=== PATIENT | female | born 1955 | race African-American/Black ===

== ENCOUNTER 2016-07-17 16:04 | Inpatient (IN) | payer OTHER ==
[~2016-07-17] VITALS: Ht 160 cm; Wt 91.1 kg
[~2016-07-17 16:04] MED LIST: ALPR0.254 PO; AMLO5TAB4 PO; ATOR80TA75 PO; CALC-143 PO; COMP1EAC MC; FENO67CA PO; FURO20TA3 PO; GABA-526 PO; HAL2 PO; HYDR-906 PO; INSU100C SQ; IPRA3AMP HHN; LANT3I SC; LOSA100T7 PO; METF-388 PO; METO-448 PO; NAPR-685 PO; Nicotine (14 Mg/24 Hr) TRANSDERM; PANT40TA3 PO; POTA8CAP PO; SERT100T PO; TRAZ300T15 PO; [UNRECOGNIZED DRUG - CODE] PO; [UNRECOGNIZED DRUG - CODE] PO
[2016-07-17] MEDS ORDERED: IPRATROPIUM (NEB) 0.5 MG/2.5 ML AMP NEB STA (16:06)
[2016-07-17] MEDS ORDERED: ALBUTEROL 0.5% (NEB) 2.5 MG/0.5 ML AMP NEB STA (16:06)
[2016-07-17] MEDS ORDERED: METHYLPREDNISOLONE 125 MG INJ IV STA (16:06)
--- NOTE | 2016-07-17 16:31 | RADRPT ---
PROCEDURE: XR Chest. CLINICAL INDICATION: Chest pain. TECHNIQUE: Single frontal view. COMPARISON: 03/03/2016. FINDINGS: There is bilateral interstitial disease predominately in the mid and lower lung zones consistent wit h pulmonary edema, worse than seen previously. The lungs are otherwise clear. The heart is enlarged. There is a dual lead left-sided permanent pacemaker. There is a transcathet er aortic valve replacement. There is no pleural effusion. There is no pneumothorax. IMPRESSION: 1. Pulmonary edema, worse than seen previously. 2. Cardiomegaly. 3. Left-sided dual lead permanent pacemaker. 4. Transcatheter aortic valve replacement (TAVR). RPTAT: QQ .Tao Mcmahon MD, MD Date Time Electronically viewed and signed by .Tao Mcmahon MD, MD on 07/17/2016 16:31 .R/
[2016-07-17] MEDS ORDERED: TRAZ100T15 PO (16:38)
[2016-07-17] MEDS ORDERED: WARF5TAB72 PO (16:42)
[2016-07-17] MEDS ORDERED: WARF7.5T PO (16:42)
[2016-07-17 16:59] LABS: EOSINOPHILS # 0.1 10^3/ul (0.0-0.5); EOSINOPHILS % 1.2 % (0.0-7.0); HEMATOCRIT 35.3 % (37.0-47.0); HEMOGLOBIN 11.3 g/dl (12.0-16.0); LYMPHOCYTES # 1.2 10^3/ul (0.8-2.9); LYMPHOCYTES % 17.4 % (15.0-51.0); MEAN CORPUSCULAR HEMOGLOBIN 28.3 pg (29.0-33.0); MEAN CORPUSCULAR HGB CONC 32.1 g/dl (32.0-37.0); MEAN PLATELET VOLUME 9.7 fl (7.4-10.4); MONOCYTE # 0.3 10^3/ul (0.3-0.9); MONOCYTES % 4.4 % (0.0-11.0); NEUTROPHIL # 5.4 10^3/ul (1.6-7.5); PLATELET COUNT 158 10^3/UL (140-440); RED BLOOD COUNT 4.01 10^6/ul (4.20-5.40); RED CELL DISTRIBUTION WIDTH 26.5 % (11.5-14.5)
[2016-07-17 17:03] LABS: CONDITION 1; LH ANALYZER COMMENTS 1; SUSPECT 1
[2016-07-17 17:08] LABS: INR 2.74; PROTIME 29.4 Sec (12.2-14.2); PT RATIO 2.3
[2016-07-17 17:09] LABS: PARTIAL THROMBOPLASTIN TIME 42.8 Sec (25.0-35.0); POTASSIUM 3.3 mmol/L (3.5-5.1)
[2016-07-17 17:12] LABS: CREATININE 0.86 mg/dl (0.44-1.00)
[2016-07-17 17:13] LABS: CALCIUM 8.6 mg/dl (8.4-10.2)
[2016-07-17 17:25] LABS: TROPONIN-I 0.016 ng/ml (0.00-0.12)
[2016-07-17] MEDS ORDERED: FUROSEMIDE 40 MG INJ IV ONE (17:30)
[2016-07-17] MEDS ORDERED: POTASSIUM CHLORIDE (SR) 20 MEQ TAB PO STA (17:38)
--- NOTE | 2016-07-17 17:38 | ERA ---
ER Documentation Chief Complaint Date/Time DATE: 07/17/16 TIME: 17:33 Chief Complaint SOB X3 DAYS, SENT BY PCP FOR LOW O2 SAT HPI This is a 61-year-old female who presents to the emergency room after being brought in by ambulance from a urgent care for evaluation of shortness of breath for the past 3 days. At the urgent care the patient did have a pulse oxygen level of 74% on room air. She was placed on a nonrebreather and transported to the emergency room for further evaluation. She does state that she is short of breath and is worse when she lays flat, and does state that she does have a history of "water on the lungs". This patient is a smoker and does state that she continues to smoke cigarettes. She is denying any nausea, vomiting, or active chest pain at this time. ROS All systems reviewed and are negative except as per history of present illness. Medications Home Meds Active Scripts Potassium Chloride* (Potassium Chloride*) 8 Meq Capsule.er, 8 MEQ PO DAILY, #30 CAP Prov:SABRINA COOK MD 03/03/16 Furosemide* (Furosemide*) 20 Mg Tablet, 20 MG PO DAILY, #30 TAB Prov:SABRINA COOK MD 03/03/16 Reported Medications Warfarin Sodium* (Coumadin*) 7.5 Mg Tablet, 7.5 MG PO SUNDAY, TAB 07/17/16 Warfarin Sodium* (Coumadin*) 5 Mg Tablet, 5 MG PO S,M,T,NARINDER,F,SAT,, TAB 07/17/16 Trazodone Hcl* (Trazodone Hcl*) 100 Mg Tablet, 200 MG PO QHS, #30 TAB 07/17/16 Haloperidol* (Haldol*) 2 Mg Tab, 4 MG PO QHS, TAB 02/29/16 Amlodipine Besylate* (Norvasc*) 5 Mg Tablet, 5 MG PO DAILY, TAB 02/29/16 Insulin Lispro (Humalog) 100 Unit/1 Ml Cartridge, 48 UNIT SQ WITH MEALS 02/29/16 Atorvastatin* (Atorvastatin*) 80 Mg Tablet, 80 MG PO QHS, #30 TAB 02/29/16 Pantoprazole* (Protonix*) 40 Mg Tablet.dr, 40 MG PO DAILY, TAB 02/29/16 Sertraline Hcl* (Zoloft*) 100 Mg Tablet, 200 MG PO QAM, #60 TAB 8/23/16 Fenofibrate, Micronized (Lofibra) 67 Mg Capsule, 67 MG PO DAILY, CAP 02/29/16 Losartan Potassium* (Losartan Potassium*) 100 Mg Tablet, 100 MG PO DAILY, TAB 02/29/16 Insulin Glargine* (Lantus*) 100 Unit/Ml Soln, 78 UNIT SC BID, #1 VIAL 02/29/16 Gabapentin* (Gabapentin*) 600 Mg Tablet, 600 MG PO BID, #60 TAB 02/29/16 [place]-3 Fatty Acids (Fish Oil Concentrate) 1 Cap Capsule, 1 CAP PO BID 02/25/12 Metoprolol Tartrate* (Lopressor*) 25 Mg Tab, 25 MG PO BID 02/25/12 Aspirin (Child Aspirin) 81 Mg Tab.chew, 81 MG PO DAILY 02/25/12 Discontinued Reported Medications Calcium Citrate/Vitamin D (Citracal-Vitamin D 200 MG-250) 1 Each Tablet, 1 EACH PO BID, TAB 02/29/16 Trazodone Hcl* (Trazodone Hcl*) 300 Mg Tablet, 300 MG PO QHS, #30 TAB 02/29/16 Naproxen* (Naproxen*) 375 Mg Tablet, 375 MG PO BID Y for PAIN AND/OR INFLAMMATION, TAB 02/29/16 Metformin Hcl* (Metformin Hcl*) 1,000 Mg Tablet, 1000 MG PO WITH BREAKFAST DINNE , #30 TAB 02/29/16 Discontinued Scripts Hydrocodone/Acetaminophen ([place] 5-325 Tablet) 1 Each Tablet, 1 TAB PO Q6H Y for PAIN, #15 TAB Prov:ZAHEER COOK 03/10/16 Compressor, For Nebulizer ([place] Compressor-Nebulizer) 1 Each Each, 1 EACH MC , #1 Prov:SABRINA COOK MD 03/03/16 Ipratropium-Albuterol (Ipratropium-Albuterol) 0.5-3 Mg/3 Ml Ampul.neb, 3 ML HHN Q2H RESP THERAPY Y for SHORTNESS OF BREATH, #1 BOX Prov:SABRINA COOK MD 03/03/16 [Nicotine (14 Mg/24 Hr)] 1 PATCH PATCH No Conflict Check, 1 PATCH TRANSDERM DAILY, #30 ADH.PATCH Prov:SABRINA COOK MD 8/26/16 Alprazolam* (Alprazolam*) 0.25 Mg Tablet, 0.5 MG PO Q8H Y for anxiety, #40 TAB Prov:SABRINA COOK MD 03/03/16 Allergies Allergies: Coded Allergies: No Known Allergy (Unverified , 07/17/16) PMhx/Soc History of Surgery: Yes (appendectomy, toncillectomy,pacemaker/defibrillator ( 09/2015)) Anesthesia Reaction: No Hx Neurological Disorder: Yes (neuropathy) Hx Respiratory Disorders: Yes (asthma, copd) Hx Cardiac Disorders: Yes (HTN) Hx Psychiatric Problems: Yes (depression) Hx Miscellaneous Medical Probl: Yes (DM, high cholesterol) Hx Alcohol Use: Yes (1 shot of vodka/ night) Hx Substance Use: No Hx Tobacco Use: Yes (1 pack/ day) Smoking Status: Current every day smoker Physical Exam Vitals Vital Signs Date Time Temp Pulse Resp B/P Pulse Ox O2 Delivery O2 Flow Rate FiO2 07/17/16 16:32 68 28 95 Nasal Cannula 4.0 07/17/16 16:30 72 23 146/71 74 07/17/16 16:30 Nasal Cannula 4.0 07/17/16 16:30 Nasal Cannula 4 07/17/16 16:11 74 4.0 Physical Exam INITIAL VITAL SIGNS: Reviewed by me GENERAL: The patient is well developed and appropriate for usual state of health in no apparent distress HEENT: Pupils equal, round, and reactive to light. EOMI. There is no scleral icterus. NECK: C-spine is soft and supple, there is no meningismus. There is no cervical lymphadenopathy. LUNGS: Diffuse rales auscultated throughout all lung linares worse in the lower lobes HEART: Regular rate and rhythm, no murmurs, clicks, rubs or gallops. ABDOMEN: Soft, non-tender, non-distended. There are bowel sounds in all four quadrants. No rebound or guarding. EXTREMITIES: There is no peripheral cyanosis or edema. No focal swelling or erythema. NEUROLOGICAL: The patient moves all four extremities with 5/5 strength. Cranial nerves II - XII are intact. Normal gait. Alert and oriented SKIN: There is no apparent rash or petechiae. HEME/LYMPHATIC: There is no evidence of excessive bruising or lymphedema. PSYCHIATRIC: The patient does not appear anxious or depressed. Result Diagram: 07/17/16 1630 07/17/16 1630 Results 24 hrs Laboratory Tests Test 07/17/16 16:30 Activated Partial Thromboplast Time 42.8Sec Anion Gap 15 B-Type Natriuretic Peptide 2590PG/ML Basophils # 0.010^3/ul Basophils % 0.0% Bedside Glucose 89mg/dL Blood Morphology Comment Blood Urea Nitrogen 12mg/dl Calcium Level 8.6mg/dl Carbon Dioxide Level 30mmol/L Chloride Level 104mmol/L Creatinine 0.86mg/dl Eosinophils # 0.110^3/ul Eosinophils % 1.2% Glucose Level 82mg/dl Hematocrit 35.3% Hemoglobin 11.3g/dl INR International Normalized Ratio 2.74 Lymphocytes # 1.210^3/ul Lymphocytes % 17.4% Mean Corpuscular Hemoglobin 28.3pg Mean Corpuscular Hemoglobin Concent 32.1g/dl Mean Corpuscular Volume 88.0fl Mean Platelet Volume 9.7fl Monocytes # 0.310^3/ul Monocytes % 4.4% Neutrophils # 5.410^3/ul Neutrophils % 77.0% Nucleated Red Blood Cells # 0.010^3/ul Nucleated Red Blood Cells % 0.0/100WBC Platelet Count 71173^3/UL Potassium Level 3.3mmol/L Prothrombin Time 29.4Sec Prothrombin Time Ratio 2.3 Red Blood Count 4.0110^6/ul Red Cell Distribution Width 26.5% Sodium Level 146mmol/L Troponin I 0.016ng/ml White Blood Count 7.010^3/ul Current Medications Medications (Trade) Dose Ordered Sig/River Route PRN Reason Start Time Stop Time Status Last Admin Dose Admin Albuterol (Proventil 0.5% (Neb)) 5 mg ONCE STAT NEB 07/17/16 16:06 07/17/16 16:07 DC 07/17/16 16:31 Ipratropium [place] (Atrovent 0.02% (Neb)) 0.5 mg ONCE STAT NEB 07/17/16 16:06 07/17/16 16:07 DC 07/17/16 16:31 Methylprednisolone Sodium Succinate (Solu-Medrol) 125 mg ONCE STAT IV 07/17/16 16:06 07/17/16 16:07 DC 07/17/16 16:42 Furosemide (Lasix) 40 mg ONCE ONCE IV 07/17/16 17:30 07/17/16 17:31 DC Procedures/MDM EKG: Rate/Rhythm: [Normal Sinus Rhythm with left axis deviation] QRS, ST, T-waves: [No changes consistent w/ acute ischemia] Impression: [No evidence of ischemia or arrhythmia] Chest X-ray 1V Interpreted by me: Soft Tissue: No acute abnormalities Bones: No acute abnormalities Mediastinum/Cardiac Silhouette/Lungs: Pulmonary edema This 61-year-old female presents to the emergency room for evaluation of shortness of breath. She was satting 74% on room air and we did confirm that here in the emergency room. This patient was put on a nonrebreather, she was given an in-line breathing treatment and her pulse ox was 100%. She did have coarse rales throughout her lung linares and x-ray did confirm my suspicion of pulmonary edema. This patient is hemodynamically stable at this time, her troponin is normal and she was given Lasix for diuresis. Given this patient's pulse ox, and x-ray consistent with pulmonary edema she will be placed in for admission at this time on to a telemetry floor for continued diuresis and further evaluation. She will be admitted to her panel physician, Dr. Capellan. Critical Care: Excluding all billable procedures Time: 41minutes Treatments/Evaluations: Emergent and rapid respiratory assessment and management with continuous monitoring. Advanced airway equipment at the ready, while the patient's respiratory symptoms were stabilized. Smoking Cessation Therapy: Pt. was lectured for greater than 3 minutes on the health risks of continued smoking and the benefits of cessation. Departure Diagnosis: Primary Impression: Acute decompensated heart failure Additional Impressions: Pulmonary edema Respiratory failure Hypokalemia Tobacco abuse counseling Tobacco abuse Condition: Serious EMERYDANIEL CRUZ Jul 17, 2016 17:37
[2016-07-17] MEDS ORDERED: ACETAMINOPHEN 325 MG TAB PO PRN ×2 (18:00→18:30)
[2016-07-17] MEDS ORDERED: ONDANSETRON 4 MG INJ IV PRN ×2 (18:00→18:30)
[2016-07-17] MEDS ORDERED: NACL 0.9% 3 ML SYG IV SCH (18:30)
[2016-07-17] MEDS ORDERED: BISACODYL (EC) 5 MG TAB PO PRN (18:30)
[2016-07-17] MEDS ORDERED: MAGNESIUM HYDROXIDE 30ML CUP PO PRN (18:30)
[2016-07-17] MEDS ORDERED: LORAZEPAM 2 MG INJ IV PRN (18:30)
[2016-07-17] MEDS ORDERED: NITROGLYCERIN (SL) 0.4 MG TAB SL PRN (18:30)
[2016-07-17] MEDS ORDERED: DEXTROSE 50% 50 ML SYRINGE IV PRN ×2 (19:00)
[2016-07-17] MEDS ORDERED: GLUCOSE GEL 15 GRAM TUBE PO PRN ×2 (19:00)
[2016-07-17] MEDS ORDERED: hydrALAzine 20 MG INJ IV PRN (19:00)
[2016-07-17] MEDS ORDERED: GLUCOSE GEL 15 GRAM TUBE BUCCAL PRN (19:00)
[2016-07-17] MEDS ORDERED: GLUCAGON 1 MG INJ IM PRN (19:00)
[2016-07-17] MEDS ORDERED: ALBUTEROL/IPRATROPIUM (NEB) 3 ML AMP HHN PRN (19:00)
[2016-07-17 19:34] LABS: ADD UMIC NO; URINE BILIRUBIN (Dip) NEGATIVE (NEGATIVE); URINE BLOOD (Dip) NEGATIVE (NEGATIVE); URINE COLOR LT. YELLOW (YELLOW); URINE GLUCOSE (Dip) NEGATIVE (NEGATIVE); URINE KETONES (Dip) NEGATIVE (NEGATIVE); URINE LEUKOCYTE ESTERASE (Dip) NEGATIVE (NEGATIVE); URINE NITRITE (Dip) NEGATIVE (NEGATIVE); URINE TOTAL PROTEIN (Dip) NEGATIVE (NEGATIVE); URINE UROBILINOGEN (Dip) 0.2 E.U./dL (0.1-1.0)
[2016-07-17 20:00] LABS: BARBITURATES Negative (NEGATIVE); BENZODIAZEPINES Negative (NEGATIVE); CANNABINOIDS Positive (NEGATIVE); COCAINE Negative (NEGATIVE); OPIATES Negative (NEGATIVE)
[2016-07-17] MEDS: WARFARIN 5 MG TAB PO SCH (20:15)
[2016-07-17] MEDS: morphine 2 MG INJ IV PRN (20:24)
[2016-07-17] MEDS: ALBUTEROL/IPRATROPIUM (NEB) 3 ML AMP HHN SCH (20:32)
--- NOTE | 2016-07-17 20:58 | HP ---
DATE OF ADMISSION: 07/17/2016 REASON FOR ADMISSION: Dyspnea. Sent in by urgent care for low oxygen saturation. CONSULTATIONS: Dr. Naun Bernard, Cardiology HISTORY OF PRESENT ILLNESS: This is a 61-year-old female with chronic hypoxia secondary to COPD who uses home oxygen, essential hypertension, diastolic heart failure, type 2 diabetes mellitus, anemia, mitral stenosis, status post aortic valve replacement, and nicotine use who was brought to the emergency room by ambulance from an urgent care for evaluation of shortness of breath that has been going on for the past 3 days. The patient verbalized that she has been using her inhaled bronchodilators more frequently with no improvement in the shortness of breath. She has been using 4 L of oxygen at home with no improvement in the shortness of breath. She denied any cough. She was complaining of subjective fevers and chills. She was complaining of nonspecific chest pain. The patient continues to smoke despite her clinical condition. The patient verbalized that the dyspnea was worse while she was lying flat. The patient denied any nausea, vomiting, diarrhea, dysuria or urinary frequency. The patient verbalized that she has been compliant with her medications. In the emergency room, the patient was noticed to have an oxygen saturation of 74%. The patient was subsequently put on 100% nonrebreather mask with improvement in the patient's oxygen saturation. The patient underwent a chest x -ray that showed pulmonary edema and cardiomegaly. The patient was treated with IV Solu-Medrol and IV Lasix along with inhaled bronchodilators in the emergency room. PAST MEDICAL HISTORY: Essential hypertension, COPD, diastolic heart failure, type 2 diabetes mellitus, iron deficiency anemia, mitral stenosis. PAST SURGICAL HISTORY: Appendectomy, tonsillectomy, TAVR, pacemaker placement. HOME MEDICATIONS: 1. Warfarin 5 mg p.o. on Sunday, Sunday, Sunday, , Sunday and Sunday. 2. Warfarin 7.5 mg p.o. on Sunday. 3. Amlodipine 5 mg p.o. daily. 4. Atorvastatin 80 mg p.o. at bedtime. 5. Fenofibrate 67 mg p.o. daily. 6. Losartan 100 mg p.o. daily. 7. Lopressor 25 mg p.o. b.i.d. 8. [place]-3 fatty acids 1 capsule p.o. b.i.d. 9. Aspirin 81 mg p.o. daily. 10. Gabapentin 600 mg p.o. b.i.d. 11. Haldol 4 mg p.o. at bedtime. 12. Zoloft 200 mg p.o. q.a.m. 13. Trazodone 200 mg p.o. at bedtime. 14. Lasix 20 mg p.o. daily. 15. Potassium chloride 8 mEq p.o. daily. 16. Protonix 40 mg p.o. daily. 17. Lantus insulin 78 units subcutaneously b.i.d. 18. Humalog insulin 14 units subcutaneously with meals. ALLERGIES: NO KNOWN DRUG ALLERGIES. SOCIAL HISTORY: The patient lives at home. Current everyday tobacco user. Social drinker. Denies any use of illicit drugs. REVIEW OF SYSTEMS: A 12-point review of systems was made, and the review of systems is negative other than what is mentioned in the history of present illness. PHYSICAL EXAMINATION: VITAL SIGNS: Temperature 98.8, pulse rate 81, respiratory rate 23, blood pressure 147/60, oxygen saturation 95% on 4 L oxygen. GENERAL: This is a 61-year-old female lying in bed in mild to moderate respiratory distress. HEENT: Head normocephalic and atraumatic. Eyes: Anicteric sclerae. Conjunctivae clear. ENT: Nasal septum is midline. Oral mucosa is dry. NECK: Supple. JVD noticed. RESPIRATORY: Bilaterally diminished breath sounds. Use of accessory muscles of respiration. Bilateral fine rales are heard. Bilateral expiratory wheezing. CARDIAC: Regular rate and rhythm with a soft systolic murmur. ABDOMEN: Soft, nontender and nondistended. Bowel sounds positive in all 4 quadrants. GENITOURINARY: Deferred. EXTREMITIES: No cyanosis, no clubbing. Bilateral lower extremity 1+ pitting edema. Peripheral pulses palpable. NEUROLOGIC: The patient is awake, alert and oriented. Cranial nerves are grossly intact. LABORATORY AND DIAGNOSTIC DATA: WBC 7.0, hemoglobin 11.3, hematocrit 35.3, platelet count 158. Sodium 146, potassium 3.3, chloride 104, carbon dioxide 30 , anion gap 15, BUN 12, creatinine 0.86, glucose 82, calcium 8.6. Troponin 0.016. BNP 2590. PT 29.4, INR 2.74, APTT 42.8. Chest x-ray. Pulmonary edema, worse than seen previously. Cardiomegaly. Left- sided dual-lead permanent pacemaker. Transcatheter aortic valve replacement. Twelve-lead EKG. Normal sinus rhythm. Left atrial enlargement. IMPRESSION: This is a 61-year-old female with multiple comorbidities who came to the emergency room with dyspnea and significant hypoxia who will be admitted here for further treatment and evaluation. ASSESSMENT AND PLAN: 1. Acute on chronic respiratory failure. Hypoxic. Most probably secondary to underlying congestive heart failure exacerbation with a component of chronic obstructive pulmonary disease. The patient will be continued on supplemental oxygen. The patient will be started on aggressive diuresis. The patient will be maintained on inhaled bronchodilators. 2. Congestive heart failure exacerbation. Acute on chronic diastolic dysfunction. The patient will be aggressively diuresed using diuretics. Cardiology consult will be obtained. The patient will be ruled out for any underlying acute coronary syndrome. 3. Chronic obstructive pulmonary disease exacerbation. The patient will be maintained on inhaled bronchodilators. The patient will also be started on a tapering dose of steroids. An ABG will be obtained to evaluate the extent of hypoxia and to evaluate for any underlying CO2 retention. 4. Essential hypertension. The patient's home antihypertensives will be resumed. The patient will also be started on p.r.n. antihypertensives for any systolic blood pressure readings greater than 160 mmHg. 5. Type 2 diabetes mellitus. The patient will be started on sliding scale insulin along with Lantus insulin and basal insulin. Hemoglobin A1c will be obtained to evaluate the blood glucose control over the past few weeks. 6. Status post aortic valve replacement. The patient's INR is therapeutic. The patient will be continued on warfarin. Daily PT/INR will be ordered. 7. Nicotine use. Cessation will be advised. The patient will be provided with a nicotine patch. 8. Pulmonary hypertension, PA pressure 43 mmHg as per 2-D echocardiogram done on 02/29/2016. The patient will be provided with supplemental oxygen. The patient will be maintained on calcium channel blockers. 9. Depression. The patient will be continued on antidepressants. PLAN. The patient will be admitted to inpatient telemetry floor. The patient will be started on a carbohydrate-controlled, low-cholesterol diet. The patient will be started on DVT prophylaxis and gastrointestinal prophylaxis. She will remain a FULL CODE. Cardiology consult will be obtained. No 2-D echocardiogram will be ordered since the patient had a recent 2-D echocardiogram on 02/29/2016. The rest of the patient's management will be based on the clinical course, results of diagnostic studies, and inputs from consultants. Based on the patient's clinical presentation, she most probably requires at least 2-midnights' stay for further management and evaluation of her clinical presentation. The case and management of this patient was fully discussed with Dr. Arteaga. Approximately 60 minutes were spent on the history and physical of this patient. MARGARITO ARTEAGA MD, AM/NICOLÁS Conf#: [id number] DID#: [id number] MTDD
[2016-07-17] MEDS ORDERED: FAMOTIDINE 20 MG TAB PO SCH (21:00)
[2016-07-17] MEDS ORDERED: INSULIN GLARGINE [LANtus] 3 ML PEN SC SCH (21:00)
[2016-07-17] MEDS: INSULIN ASPART [NOVOLOG] 3 ML PEN SC SCH (22:55)
[2016-07-17 22:56] LABS: CK-MB 0.71 ng/ml (0.0-2.4)
[2016-07-17 22:59] LABS: TROPONIN-I 0.023 ng/ml (0.00-0.12)
[2016-07-17] MEDS: INSULIN GLARGINE [LANtus] 3 ML PEN SC SCH (22:59)
[2016-07-17] MEDS: traZODone 100 MG TAB PO SCH (23:03)
[2016-07-17] MEDS: HALOPERIDOL 1 MG TAB PO SCH (23:03)
[2016-07-17] MEDS: GABAPENTIN 300 MG CAP PO SCH (23:08)
[2016-07-17] MEDS: METOPROLOL 25 MG TAB PO SCH (23:08)
[2016-07-17] MEDS: ATORVASTATIN 80 MG TAB PO SCH (23:10)
[2016-07-17] MEDS: NICOTINE (14 MG/24 HR) PATCH TRANSDERM SCH (23:12)
[2016-07-17] MEDS: METHYLPREDNISOLONE 125 MG INJ IV SCH (23:33)
[2016-07-17 23:35] VITALS: TEMP 98.8
[2016-07-18] VITALS (13 sets, daily range): BP systolic 128–170; BP diastolic 58–72; PULSE 66–89; RESP 18–20; Ht 160 cm; Wt 91.1 kg
[2016-07-18] MEDS: morphine 2 MG INJ IV PRN ×3 (01:38→23:09)
[2016-07-18] MEDS: HYDROCODONE/APAP (5/325) TAB PO PRN ×2 (02:57→13:14)
[2016-07-18] MEDS: METHYLPREDNISOLONE 125 MG INJ IV SCH ×2 (06:45→20:35)
[2016-07-18] MEDS: PANTOPRAZOLE (EC) 40 MG TAB PO SCH (06:45)
[2016-07-18 06:57] LABS: AADO2 Arterial 125.9 mmHg (7.0-24.0); Arterial Base Excess 0.3 mmol/L (-3.0-3); Arterial COHb 4.6 % (0.0-3.0); Arterial Fraction of Oxyhgb 86.5 % (93.0-99.0); Arterial HCO3 24.9 mmol/L (22.0-26.0); Arterial MetHb 0.2 % (0.0-1.5); Arterial Total Hemglobin 12.2 g/dl (12.0-18.0); MODE NASAL CANNULA
[2016-07-18 07:00] LABS: BASOPHILS % 0.3 % (0.0-2.0); EOSINOPHILS % 0.1 % (0.0-7.0); HEMOGLOBIN 10.3 g/dl (12.0-16.0); LYMPHOCYTES # 0.7 10^3/ul (0.8-2.9); LYMPHOCYTES % 13.6 % (15.0-51.0); MEAN CORPUSCULAR HEMOGLOBIN 28.6 pg (29.0-33.0); MEAN CORPUSCULAR HGB CONC 32.2 g/dl (32.0-37.0); MEAN CORPUSCULAR VOLUME 88.7 fl (82.0-101.0); MEAN PLATELET VOLUME 10.1 fl (7.4-10.4); MONOCYTE # 0.2 10^3/ul (0.3-0.9); MONOCYTES % 3.9 % (0.0-11.0); NEUTROPHIL # 4.5 10^3/ul (1.6-7.5); NEUTROPHILS % 82.1 % (39.0-77.0); PLATELET COUNT 154 10^3/UL (140-440); RED BLOOD COUNT 3.61 10^6/ul (4.20-5.40); RED CELL DISTRIBUTION WIDTH 25.6 % (11.5-14.5); UNCORRECTED WBC 5.4 10^3/ul (4.8-10.8); WHITE BLOOD COUNT 5.4 10^3/ul (4.8-10.8)
[2016-07-18 07:01] LABS: INR 2.71; PROTIME 29.1 Sec (12.2-14.2); PT RATIO 2.3
[2016-07-18 07:04] LABS: CONDITION 1; LH ANALYZER COMMENTS 1; NUCLEATED RED BLOOD CELLS # 0.1 10^3/ul (0.0-0.0); SUSPECT 1
[2016-07-18 07:10] LABS: POTASSIUM 4.6 mmol/L (3.5-5.1)
[2016-07-18 07:11] LABS: PHOSPHORUS 4.3 mg/dl (2.5-4.9)
[2016-07-18 07:12] LABS: MAGNESIUM 2.1 mg/dl (1.7-2.5)
[2016-07-18 07:13] LABS: CREATININE 0.83 mg/dl (0.44-1.00)
[2016-07-18 07:14] LABS: CALCIUM 8.6 mg/dl (8.4-10.2)
[2016-07-18 07:15] LABS: CHOL/HDL RATIO 3.1 RATIO
[2016-07-18 07:20] LABS: CK-MB 0.98 ng/ml (0.0-2.4)
[2016-07-18 07:23] LABS: TROPONIN-I 0.015 ng/ml (0.00-0.12)
[2016-07-18] MEDS ORDERED: INSULIN LISPRO SQ SCH (08:00)
[2016-07-18] MEDS: ALBUTEROL/IPRATROPIUM (NEB) 3 ML AMP HHN SCH ×3 (08:36→19:15)
[2016-07-18] MEDS: ASPIRIN 81 MG TAB PO SCH (08:37)
[2016-07-18] MEDS: NICOTINE (14 MG/24 HR) PATCH TRANSDERM SCH (08:37)
[2016-07-18] MEDS: LOSARTAN 50 MG TAB PO SCH (08:38)
[2016-07-18] MEDS: GABAPENTIN 300 MG CAP PO SCH ×2 (08:38→20:33)
[2016-07-18] MEDS: SERTRALINE 100 MG TAB PO SCH (08:38)
[2016-07-18] MEDS: METOPROLOL 25 MG TAB PO SCH ×2 (08:38→20:34)
[2016-07-18] MEDS: AMLODIPINE 5 MG TAB PO SCH (08:38)
[2016-07-18] MEDS: INSULIN ASPART [NOVOLOG] 3 ML PEN SC SCH ×7 (08:43→20:36)
[2016-07-18 08:51] LABS: THYROID STIMULATING HORMONE 0.193 MIU/L (0.465-4.680)
[2016-07-18] MEDS ORDERED: ASPIRIN 81 MG TAB PO SCH (09:00)
[2016-07-18] MEDS: FUROSEMIDE 40 MG INJ IV SCH ×2 (09:57→17:14)
--- NOTE | 2016-07-18 12:02 | PN ---
Date/Time of Note Date/Time of Note DATE: 07/18/16 TIME: 12:00 Assessment/Plan VTE Prophylaxis VTE Prophylaxis Intervention: other (Warfarin.) Lines/Catheters IV [facility] Saline Lock Assessment/Plan Chief Complaint/Hosp Course 1. Acute on chronic respiratory failure. Hypoxic. Most probably secondary to underlying congestive heart failure exacerbation with a component of chronic obstructive pulmonary disease. The patient will be continued on supplemental oxygen. The patient will be continued on aggressive diuresis. The patient will be maintained on inhaled bronchodilators. 2. Congestive heart failure exacerbation. Acute on chronic diastolic dysfunction. The patient will be aggressively diuresed using diuretics. Cardiology following. Serial troponins negative. 3. Chronic obstructive pulmonary disease exacerbation. The patient will be maintained on inhaled bronchodilators. The patient will be continued on tapering dose of steroids. ABG shows hypoxia and no evidence of any underlying CO2 retention. 4. Essential hypertension. Continue home antihypertensives. Continue p.r.n. antihypertensives for any systolic blood pressure readings greater than 160 mmHg. 5. Type 2 diabetes mellitus. Hemoglobin A1c 5.8. The patient will be continued on sliding scale insulin along with Lantus insulin and basal insulin. 6. Status post aortic valve replacement. The patient's INR is therapeutic. The patient will be continued on warfarin. Daily PT/INR will be ordered. 7. Nicotine use. Cessation will be advised. The patient will be provided with a nicotine patch. 8. Pulmonary hypertension, PA pressure 43 mmHg as per 2-D echocardiogram done on 02/29/2016. The patient will be provided with supplemental oxygen. The patient will be maintained on calcium channel blockers. 9. Depression. The patient will be continued on antidepressants. 10. Fluids, electrolytes, and nutrition. Carbohydrate controlled diet. 11. DVT prophylaxis. On warfarin. 12. Gastrointestinal prophylaxis. Proton pump inhibitors. 13. Plan. Continue diuresis. Continue inhaled bronchodilators. Continue tapering dose of steroids. Adjust insulin dosing to obtain optimal blood sugar control. Case discussed with . Problems: Subjective 24 Hr Interval Summary Free Text/Dictation Feeling better. Denies any chest pain. Exam/Review of Systems Vital Signs Vitals Vital Signs Date Time Temp Pulse Resp B/P Pulse Ox O2 Delivery O2 Flow Rate FiO2 07/18/16 11:39 98.2 65 18 154/66 98 07/18/16 08:37 5.0 07/18/16 08:37 Nasal Cannula Intake and Output 07/17/16 07/17/16 07/18/16 14:59 22:59 06:59 Intake Total 400 ml Balance 400 ml Exam GENERAL: This is a 61-year-old female lying in bed in mild to moderate respiratory distress. HEENT: Head normocephalic and atraumatic. Eyes: Anicteric sclerae. Conjunctivae clear. ENT: Nasal septum is midline. Oral mucosa is dry. NECK: Supple. JVD noticed. RESPIRATORY: Bilaterally diminished breath sounds. Use of accessory muscles of respiration. Bilateral fine rales are heard. Bilateral expiratory wheezing. CARDIAC: Regular rate and rhythm with a soft systolic murmur. ABDOMEN: Soft, nontender and nondistended. Bowel sounds positive in all 4 quadrants. GENITOURINARY: Deferred. EXTREMITIES: No cyanosis, no clubbing. Bilateral lower extremity 1+ pitting edema. Peripheral pulses palpable. NEUROLOGIC: The patient is awake, alert and oriented. Cranial nerves are grossly intact. Results Result Diagram: 07/18/16 0555 07/18/16 0555 Results 24 hrs Laboratory Tests Test 07/17/16 16:30 07/17/16 19:00 07/17/16 19:15 07/17/16 22:10 Activated Partial Thromboplast Time 42.8 H Anion Gap 15 B-Type Natriuretic Peptide 2590 H Basophils # 0.0 Basophils % 0.0 Bedside Glucose 89 Blood Morphology Comment Blood Urea Nitrogen 12 Calcium Level 8.6 Carbon Dioxide Level 30 Chloride Level 104 Creatinine 0.86 Eosinophils # 0.1 Eosinophils % 1.2 Glucose Level 82 Hematocrit 35.3 L Hemoglobin 11.3 #L INR International Normalized Ratio 2.74 Lymphocytes # 1.2 Lymphocytes % 17.4 Mean Corpuscular Hemoglobin 28.3 #L Mean Corpuscular Hemoglobin Concent 32.1 Mean Corpuscular Volume 88.0 # Mean Platelet Volume 9.7 Monocytes # 0.3 Monocytes % 4.4 Neutrophils # 5.4 Neutrophils % 77.0 Nucleated Red Blood Cells # 0.0 Nucleated Red Blood Cells % 0.0 Platelet Count 158 # Potassium Level 3.3 L Prothrombin Time 29.4 H Prothrombin Time Ratio 2.3 Red Blood Count 4.01 L Red Cell Distribution Width 26.5 #H Sodium Level 146 H Troponin I 0.016 0.023 White Blood Count 7.0 # Arterial Blood HCO3 24.9 Arterial Blood Base Excess 0.3 Arterial Blood Oxygen Saturation 90.9 L Neel Test N/A Arterial Blood Gas Puncture Site LB Arterial Blood Carboxyhemoglobin 4.6 H Arterial Blood Date Drawn 07/17/2016 8:03:46 PM Arterial Blood Methemoglobin 0.2 Arterial Blood pCO2 (Temp correct) 40.2 Arterial Blood pH (Temp corrected) 7.410 Arterial Blood pO2 (Temp corrected) 62.5 L Blood Gas A-a O2 Differential 125.9 H Blood Gas Modality NASAL CANNULA Blood Gas Notified Time 07/17/2016 8:13:45 PM Blood Gas Notified Whom RTR Blood Gas Specimen Source Blood arterial Blood Gas Temperature 37.0 FiO2 33.0 Oxyhemoglobin Percent 86.5 L Total Hemoglobin 12.2 Urine Amphetamines Screen Negative Urine Barbiturates Negative Urine Benzodiazepines Screen Negative Urine Bilirubin NEGATIVE Urine Cannabinoids Positive Urine Clarity CLEAR Urine Cocaine Screen Negative Urine Color LT. YELLOW Urine Glucose NEGATIVE Urine Hemoglobin NEGATIVE Urine Ketones NEGATIVE Urine Leukocyte Esterase NEGATIVE Urine Nitrite NEGATIVE Urine Opiates Screen Negative Urine Specific [place] 1.015 Urine Total Protein NEGATIVE Urine Urobilinogen 0.2 E.U./dL Urine pH 7.5 Creatine Kinase 66 Creatine Kinase Index 1.1 Creatinine Kinase MB (Mass) 0.71 Test 07/17/16 22:48 07/18/16 00:23 07/18/16 05:55 07/18/16 07:50 Bedside Glucose 403 *H 379 H 271 H Anion Gap 16 Basophils # 0.0 Basophils % 0.3 Blood Morphology Comment Blood Urea Nitrogen 14 Calcium Level 8.6 Carbon Dioxide Level 28 Chloride Level 104 Cholesterol Level 97 L Cholesterol/HDL Ratio 3.1 Creatine Kinase 65 Creatine Kinase Index 1.5 Creatinine 0.83 Creatinine Kinase MB (Mass) 0.98 Differential Comment AUTO w/SCAN Eosinophils # 0.0 Eosinophils % 0.1 Free Thyroxine 1.21 Glucose Level 287 #H HDL Cholesterol 31 L Hematocrit 32.0 L Hemoglobin 10.3 L Hemoglobin A1c 5.8 INR International Normalized Ratio 2.71 LDL Cholesterol, Calculated 49 Lymphocytes # 0.7 L Lymphocytes % 13.6 L Magnesium Level 2.1 Mean Corpuscular Hemoglobin 28.6 L Mean Corpuscular Hemoglobin Concent 32.2 Mean Corpuscular Volume 88.7 Mean Platelet Volume 10.1 Monocytes # 0.2 L Monocytes % 3.9 Neutrophils # 4.5 Neutrophils % 82.1 H Nucleated Red Blood Cells # 0.1 H Nucleated Red Blood Cells % 0.0 Phosphorus Level 4.3 Platelet Count 154 Potassium Level 4.6 Prothrombin Time 29.1 H Prothrombin Time Ratio 2.3 Red Blood Count 3.61 L Red Cell Distribution Width 25.6 H Sodium Level 143 Thyroid Stimulating Hormone (TSH) 0.193 L Triglycerides Level 85 Troponin I 0.015 White Blood Count 5.4 # Test 07/18/16 11:37 Bedside Glucose 313 H Medications Medications Current Medications Lorazepam (Ativan) 0.5 mg Q6H PRN IV ANXIETY; Start 07/17/16 at 18:30 Ondansetron HCl (Zofran Inj) 4 mg Q6H PRN IV NAUSEA AND/OR VOMITING Last administered on 07/17/16 20:24; Admin Dose 4 MG; Start 07/17/16 at 18:30 Aspirin (Aspirin) 81 mg DAILY PO Last administered on 07/18/16 08:37; Admin Dose 81 MG; Start 07/18/16 at 09:00 Methylprednisolone Sodium Succinate (Solu-Medrol) 60 mg Q6 IV Last administered on 07/18/16 06:45; Admin Dose 60 MG; Start 07/18/16 at 00:00 Nitroglycerin (Nitroglycerin (Sl Tab) 0.4 Mg) 1 tab Q5M PRN SL CHEST PAIN; Start 07/17/16 at 18:30 Acetaminophen (Tylenol Tab) 650 mg Q6H PRN PO PAIN LEVEL 1-3 OR FEVER; Start at 18:30 Acetaminophen/ Hydrocodone Bitart ([place] (5/325)) 1 tab Q6H PRN PO PAIN LEVEL 4 -6 Last administered on 07/18/16 02:57; Admin Dose 1 TAB; Start 07/17/16 at 18: 30 Morphine Sulfate (morphine) 2 mg Q4H PRN IV PAIN LEVEL 7-10 Last administered on 07/18/16 01:38; Admin Dose 2 MG; Start 07/17/16 at 18:30 Magnesium Hydroxide (Milk Of Mag) 30 ml DAILY PRN PO CONSTIPATION; Start at 18:30 Bisacodyl (Dulcolax) 5 mg DAILY PRN PO CONSTIPATION; Start 07/17/16 at 18:30 Amlodipine Besylate (Norvasc) 5 mg DAILY PO Last administered on 07/18/16 08: 38; Admin Dose 5 MG; Start 07/18/16 at 09:00 Atorvastatin Calcium (Lipitor) 80 mg QHS PO Last administered on 07/17/16 23:10 ; Admin Dose 80 MG; Start 07/17/16 at 21:00 Gabapentin (Neurontin) 600 mg BID PO Last administered on 07/18/16 08:38; Admin Dose 600 MG; Start 07/17/16 at 21:00 Haloperidol (Haldol) 4 mg QHS PO Last administered on 07/17/16 23:03; Admin Dose 4 MG; Start 07/17/16 at 21:00 Losartan Potassium (Cozaar) 100 mg DAILY PO Last administered on 07/18/16 08: 38; Admin Dose 100 MG; Start 07/18/16 at 09:00 Metoprolol Tartrate (Lopressor) 25 mg BID PO Last administered on 07/18/16 08: 38; Admin Dose 25 MG; Start 07/17/16 at 21:00 Pantoprazole (Protonix Tab) 40 mg DAILY@06 PO Last administered on 07/18/16 06 :45; Admin Dose 40 MG; Start 07/18/16 at 06:00 Sertraline HCl (Zoloft) 200 mg QAM PO Last administered on 07/18/16 08:38; Admin Dose 200 MG; Start 07/18/16 at 09:00 Trazodone HCl (Desyrel) 200 mg QHS PO Last administered on 07/17/16 23:03; Admin Dose 200 MG; Start 07/17/16 at 21:00 Warfarin Sodium (Coumadin) 5 mg DAILY@17 PO Last administered on 07/17/16 20:15 ; Admin Dose 5 MG; Start 07/17/16 at 19:00 Insulin Glargine (Lantus) 48 unit QHS SC Last administered on 07/17/16 22:59; Admin Dose 48 UNIT; Start 07/17/16 at 21:00 Miscellaneous Information 1 ea NOTE XX ; Start 07/17/16 at 19:00 Glucose (Glutose) 15 gm Q15M PRN PO DECREASED GLUCOSE; Start 07/17/16 at 19:00 Glucose (Glutose) 22.5 gm Q15M PRN PO DECREASED GLUCOSE; Start 07/17/16 at 19:00 Dextrose (D50w Syringe) 25 ml Q15M PRN IV DECREASED GLUCOSE; Start 07/17/16 at 19:00 Dextrose (D50w Syringe) 50 ml Q15M PRN IV DECREASED GLUCOSE; Start 07/17/16 at 19:00 Glucagon (Glucagen) 1 mg Q15M PRN IM DECREASED GLUCOSE; Start 07/17/16 at 19:00 Glucose (Glutose) 15 gm Q15M PRN BUCCAL DECREASED GLUCOSE; Start 07/17/16 at 19: 00 Hydralazine HCl (Apresoline) 10 mg Q6H PRN IV SBP>160; Start 07/17/16 at 19:00 Nicotine (Nicoderm 14 Mg/ 24hr) 1 patch DAILY TRANSDERM Last administered on t 08:37; Admin Dose 1 PATCH; Start 07/17/16 at 20:00 MARGARITO ALBARRAN NP Jul 18, 2016 12:02
[2016-07-18] MEDS: CEFTRIAXONE 2 GM/50 ML (PMX) 50 ML IVPB SCH (14:32)
--- NOTE | 2016-07-18 15:04 | CONS ---
DATE OF ADMISSION: 07/17/2016 DATE OF CONSULTATION: 07/18/2016 CARDIOLOGY CONSULTATION REFERRING PHYSICIAN: JOYCE CAPELLAN MD REASON FOR EVALUATION: Shortness of breath. HISTORY OF PRESENT ILLNESS: Ms. Vinson is a 61-year-old -[place] woman with history of COPD, chronic CO2 Retention, hypertension, diastolic failure, Type 2 diabetes, anemia, history of mitral s tenosis, status post valve replacement, history of tobacco abuse, comes to the hospital now for hist ory of severe " fatigue and weakness." The patient said that she has not been feeling well for the last few days. She is with some degree of fluid overload. It is not clear whether she has been com pliant with her therapy. For now, there is no aggressive therapy required. We will continue to opt imize the patient's fluid status. She has been reloaded on Coumadin per primary team. We will cont inue to keep the patient ____and can facilitate gentle diuresis. PAST MEDICAL HISTORY: 1. Hypertension. 2. COPD. 3. Diastolic heart failure. 4. Type 2 diabetes. 5. Iron deficiency. 6. Mitral stenosis. 7. History of valve replacement. ALLERGIES: NO KNOWN DRUG ALLERGIES. PAST SURGICAL HISTORY 1. TAVR. 2. Appendectomy. 3. Tonsillectomy. MEDICATIONS: Include: 1. Coumadin 5 mg ____ . 2. Amlodipine 5 mg p.o. once a day. 3. Atorvastatin 80 mg. 4. Fenofibrate ____ 5. Losartan 100 mg once a day. 6. Lopressor 25 mg ____. 7. [place]-3 fatty acids. 9. Aspirin. 10. Gabapentin. 11. Haldol. 12. Zoloft. 13. Trazodone. 14. Lasix 20 mg once a day. 15. Potassium chloride. 16. Lantus. 17. Humulin insulin ____. FAMILY HISTORY: Negative for sudden cardiac , premature ____. SOCIAL HISTORY: History of previous tobacco use. REVIEW OF SYSTEMS: CONSTITUTIONAL: No fevers, no chills. Severe fatigue for the last 2 weeks, but more progressed in the last 4 days. HEENT: No changes in vision or hearing. CARDIAC: No chest pain reported. RESPIRATORY: Shortness of breath. GASTROINTESTINAL: No nausea, vomiting, diarrhea, constipation. GENITOURINARY: No dysuria, hematuria ____ NEUROLOGIC: No focal deficits seen, but sluggish movement. PSYCHIATRIC: Past history of psychiatric illness. PHYSICAL EXAMINATION VITAL SIGNS: Temperature is 98.0, heart rate 80, blood pressure is 155/69. GENERAL: She is an obese woman in no acute distress, alert and oriented x1 ____her medical conditio ns. HEAD: Normocephalic, atraumatic. Eyes anicteric. NECK: Supple. JVD 6-7 cm. There is no lymphadenopathy, no thyromegaly. HEART: Regular with soft holosystolic murmur at the apex. PMI is nondisplaced. There is no S3. LUNGS: Coarse at bases. ABDOMEN: Distended, bowel sounds are present. There is no hepatosplenomegaly. GENITOURINARY: Intact. EXTREMITIES: Some edema. LABORATORY DATA: White blood cell count 5.4, hemoglobin 10.3, platelets 154. INR is 2.1. [place] m is 0.83 ASSESSMENT AND PLAN: 1. History of aortic valve replacement, sounds fairly reasonable exam. Continue global anticoagula tion now. 2. Hypertension. Blood pressure is mostly on the high side. We will resume medications now. Insti tute gentle diuresis. 3. Congestive heart failure. The patient has mild heart failure. Continue to diurese gently and s witch to IV Lasix. 4. History of secondary hypercoagulable state. INR is in range. No particular treatment is requir ed. 5. Diabetes. Continue diabetic optimization and care. I would like to thank Dr. Capellan for referring this patient for my evaluation. Dictated By: PAUL JUSTICE/NICOLÁS Conf#: [id number] DID#: [id number]
[2016-07-18] MEDS: AZITHROMYCIN 500MG/NS (PMX) 250 ML IVPB SCH (15:22)
[2016-07-18] MEDS: WARFARIN 5 MG TAB PO SCH (17:14)
[2016-07-18] MEDS: ATORVASTATIN 80 MG TAB PO SCH (20:33)
[2016-07-18] MEDS: traZODone 100 MG TAB PO SCH (20:33)
[2016-07-18] MEDS: HALOPERIDOL 1 MG TAB PO SCH (20:33)
[2016-07-18] MEDS: INSULIN GLARGINE [LANtus] 3 ML PEN SC SCH (20:37)
[2016-07-18] MEDS ORDERED: FUROSEMIDE (10 MG/ML) IV SYG IV ONE (21:00)
[2016-07-18] MEDS ORDERED: NPH, HUMAN INSULIN ISOPHANE 3ML VIAL SC SCH (21:00)
[2016-07-19] VITALS (14 sets, daily range): BP systolic 136–175; BP diastolic 63–75; PULSE 60–78; RESP 16–20
[2016-07-19] MEDS: FUROSEMIDE 40 MG INJ IV SCH ×2 (05:17→17:45)
[2016-07-19] MEDS: PANTOPRAZOLE (EC) 40 MG TAB PO SCH (05:17)
[2016-07-19 06:50] LABS: BASOPHILS % 0.5 % (0.0-2.0); HEMATOCRIT 33.3 % (37.0-47.0); HEMOGLOBIN 10.6 g/dl (12.0-16.0); LYMPHOCYTES # 0.9 10^3/ul (0.8-2.9); LYMPHOCYTES % 17.7 % (15.0-51.0); MEAN CORPUSCULAR HEMOGLOBIN 28.4 pg (29.0-33.0); MEAN CORPUSCULAR HGB CONC 31.7 g/dl (32.0-37.0); MEAN CORPUSCULAR VOLUME 89.6 fl (82.0-101.0); MEAN PLATELET VOLUME 9.7 fl (7.4-10.4); MONOCYTE # 0.2 10^3/ul (0.3-0.9); MONOCYTES % 4.2 % (0.0-11.0); NEUTROPHIL # 4.2 10^3/ul (1.6-7.5); NEUTROPHILS % 77.6 % (39.0-77.0); PLATELET COUNT 160 10^3/UL (140-440); RED BLOOD COUNT 3.72 10^6/ul (4.20-5.40); RED CELL DISTRIBUTION WIDTH 24.8 % (11.5-14.5); UNCORRECTED WBC 5.4 10^3/ul (4.8-10.8); WHITE BLOOD COUNT 5.4 10^3/ul (4.8-10.8)
[2016-07-19 06:52] LABS: CONDITION 1; LH ANALYZER COMMENTS 1; SUSPECT 1
[2016-07-19 07:03] LABS: INR 2.98; PROTIME 31.4 Sec (12.2-14.2); PT RATIO 2.5
[2016-07-19 07:14] LABS: POTASSIUM 4.6 mmol/L (3.5-5.1)
[2016-07-19 07:16] LABS: CREATININE 0.91 mg/dl (0.44-1.00)
[2016-07-19 07:17] LABS: CALCIUM 9.2 mg/dl (8.4-10.2)
[2016-07-19] MEDS: INSULIN ASPART [NOVOLOG] 3 ML PEN SC SCH ×7 (08:00→21:58)
[2016-07-19 08:15] LABS: PHOSPHORUS 4.2 mg/dl (2.5-4.9)
[2016-07-19] MEDS: ALBUTEROL/IPRATROPIUM (NEB) 3 ML AMP HHN SCH ×3 (08:39→20:29)
[2016-07-19] MEDS: GABAPENTIN 300 MG CAP PO SCH ×2 (08:43→20:57)
[2016-07-19] MEDS: SERTRALINE 100 MG TAB PO SCH (08:43)
[2016-07-19] MEDS: LOSARTAN 50 MG TAB PO SCH (08:44)
[2016-07-19] MEDS: ASPIRIN 81 MG TAB PO SCH (08:44)
[2016-07-19] MEDS: AMLODIPINE 5 MG TAB PO SCH (08:44)
[2016-07-19] MEDS: METHYLPREDNISOLONE 125 MG INJ IV SCH (08:45)
[2016-07-19] MEDS: NICOTINE (14 MG/24 HR) PATCH TRANSDERM SCH (08:45)
[2016-07-19] MEDS: METOPROLOL 25 MG TAB PO SCH ×2 (08:45→21:42)
--- NOTE | 2016-07-19 12:37 | PN ---
Date/Time of Note Date/Time of Note DATE: 07/19/16 TIME: 12:35 Assessment/Plan VTE Prophylaxis VTE Prophylaxis Intervention: other (Warfarin) Lines/Catheters IV [facility]from [facility] Saline Lock Urinary Cath still in place: No Assessment/Plan Chief Complaint/Hosp Course 1. Acute on chronic respiratory failure. Hypoxic. Most probably secondary to underlying congestive heart failure exacerbation with a component of chronic obstructive pulmonary disease. The patient will be continued on supplemental oxygen. The patient will be continued on aggressive diuresis. The patient will be maintained on inhaled bronchodilators. 2. Congestive heart failure exacerbation. Acute on chronic diastolic dysfunction. The patient will be aggressively diuresed using diuretics. Cardiology following. Serial troponins negative. 3. Chronic obstructive pulmonary disease exacerbation. The patient will be maintained on inhaled bronchodilators. The patient will be continued on tapering dose of steroids. ABG shows hypoxia and no evidence of any underlying CO2 retention. 4. Essential hypertension. Continue home antihypertensives. Continue p.r.n. antihypertensives for any systolic blood pressure readings greater than 160 mmHg. 5. Type 2 diabetes mellitus. Hemoglobin A1c 5.8. The patient will be continued on sliding scale insulin along with Lantus insulin and basal insulin. 6. Status post aortic valve replacement. The patient's INR is therapeutic. The patient will be continued on warfarin. Daily PT/INR will be ordered. 7. Nicotine use. Cessation will be advised. The patient will be provided with a nicotine patch. 8. Pulmonary hypertension, PA pressure 43 mmHg as per 2-D echocardiogram done on 02/29/2016. The patient will be provided with supplemental oxygen. The patient will be maintained on calcium channel blockers. 9. Depression. The patient will be continued on antidepressants. 10. Fluids, electrolytes, and nutrition. Carbohydrate controlled diet. 11. DVT prophylaxis. On warfarin. 12. Gastrointestinal prophylaxis. Proton pump inhibitors. 13. Plan. Continue diuresis. Continue inhaled bronchodilators. Continue tapering dose of steroids. Adjust insulin dosing to obtain optimal blood sugar control. Case discussed with . Problems: Subjective 24 Hr Interval Summary Free Text/Dictation "Feeling better." Exam/Review of Systems Vital Signs Vitals Vital Signs Date Time Temp Pulse Resp B/P Pulse Ox O2 Delivery O2 Flow Rate FiO2 07/19/16 12:17 74 07/19/16 11:51 98.5 20 161/71 93 07/19/16 10:33 Nasal Cannula 4.0 07/18/16 19:15 35 Intake and Output 07/18/16 07/18/16 07/19/16 15:00 23:00 07:00 Intake Total 1250 ml 700 ml Balance 1250 ml 700 ml Exam GENERAL: This is a 61-year-old female lying in bed in mild to moderate respiratory distress. HEENT: Head normocephalic and atraumatic. Eyes: Anicteric sclerae. Conjunctivae clear. ENT: Nasal septum is midline. Oral mucosa is dry. NECK: Supple. JVD noticed. RESPIRATORY: Bilaterally diminished breath sounds. Use of accessory muscles of respiration. Bilateral fine rales are heard. Bilateral expiratory wheezing. CARDIAC: Regular rate and rhythm with a soft systolic murmur. ABDOMEN: Soft, nontender and nondistended. Bowel sounds positive in all 4 quadrants. GENITOURINARY: Deferred. EXTREMITIES: No cyanosis, no clubbing. Bilateral lower extremity 1+ pitting edema. Peripheral pulses palpable. NEUROLOGIC: The patient is awake, alert and oriented. Cranial nerves are grossly intact. Results Result Diagram: 07/19/16 0620 07/19/16 0620 Results 24 hrs Laboratory Tests Test 07/18/16 17:03 07/18/16 20:26 07/19/16 06:20 07/19/16 08:29 Bedside Glucose 154 137 243 H Anion Gap 16 Basophils # 0.0 Basophils % 0.5 Blood Morphology Comment Blood Urea Nitrogen 24 H Calcium Level 9.2 Carbon Dioxide Level 29 Chloride Level 102 Creatinine 0.91 Eosinophils # 0.0 Eosinophils % 0.0 Glucose Level 302 H Hematocrit 33.3 L Hemoglobin 10.6 L INR International Normalized Ratio 2.98 Lymphocytes # 0.9 Lymphocytes % 17.7 Magnesium Level 2.0 Mean Corpuscular Hemoglobin 28.4 L Mean Corpuscular Hemoglobin Concent 31.7 L Mean Corpuscular Volume 89.6 Mean Platelet Volume 9.7 Monocytes # 0.2 L Monocytes % 4.2 Neutrophils # 4.2 Neutrophils % 77.6 H Nucleated Red Blood Cells # 0.0 Nucleated Red Blood Cells % 0.0 Phosphorus Level 4.2 Platelet Count 160 Potassium Level 4.6 Prothrombin Time 31.4 H Prothrombin Time Ratio 2.5 Red Blood Count 3.72 L Red Cell Distribution Width 24.8 H Sodium Level 142 White Blood Count 5.4 Test 07/19/16 12:07 Bedside Glucose 183 Medications Medications Current Medications Lorazepam (Ativan) 0.5 mg Q6H PRN IV ANXIETY; Start 07/17/16 at 18:30 Ondansetron HCl (Zofran Inj) 4 mg Q6H PRN IV NAUSEA AND/OR VOMITING Last administered on 07/17/16 20:24; Admin Dose 4 MG; Start 07/17/16 at 18:30 Aspirin (Aspirin) 81 mg DAILY PO Last administered on 07/19/16 08:44; Admin Dose 81 MG; Start 07/18/16 at 09:00 Nitroglycerin (Nitroglycerin (Sl Tab) 0.4 Mg) 1 tab Q5M PRN SL CHEST PAIN; Start 07/17/16 at 18:30 Acetaminophen (Tylenol Tab) 650 mg Q6H PRN PO PAIN LEVEL 1-3 OR FEVER; Start at 18:30 Acetaminophen/ Hydrocodone Bitart ([place] (5/325)) 1 tab Q6H PRN PO PAIN LEVEL 4 -6 Last administered on 07/18/16 13:14; Admin Dose 1 TAB; Start 07/17/16 at 18: 30 Morphine Sulfate (morphine) 2 mg Q4H PRN IV PAIN LEVEL 7-10 Last administered on 07/18/16 23:09; Admin Dose 2 MG; Start 07/17/16 at 18:30 Magnesium Hydroxide (Milk Of Mag) 30 ml DAILY PRN PO CONSTIPATION; Start at 18:30 Bisacodyl (Dulcolax) 5 mg DAILY PRN PO CONSTIPATION; Start 07/17/16 at 18:30 Amlodipine Besylate (Norvasc) 5 mg DAILY PO Last administered on 07/19/16 08: 44; Admin Dose 5 MG; Start 07/18/16 at 09:00 Atorvastatin Calcium (Lipitor) 80 mg QHS PO Last administered on 07/18/16 20: 33; Admin Dose 80 MG; Start 07/17/16 at 21:00 Gabapentin (Neurontin) 600 mg BID PO Last administered on 07/19/16 08:43; Admin Dose 600 MG; Start 07/17/16 at 21:00 Haloperidol (Haldol) 4 mg QHS PO Last administered on 07/18/16 20:33; Admin Dose 4 MG; Start 07/17/16 at 21:00 Losartan Potassium (Cozaar) 100 mg DAILY PO Last administered on 07/19/16 08: 44; Admin Dose 100 MG; Start 07/18/16 at 09:00 Metoprolol Tartrate (Lopressor) 25 mg BID PO Last administered on 07/19/16 08: 45; Admin Dose 25 MG; Start 07/17/16 at 21:00 Pantoprazole (Protonix Tab) 40 mg DAILY@06 PO Last administered on 07/19/16 05 :17; Admin Dose 40 MG; Start 07/18/16 at 06:00 Sertraline HCl (Zoloft) 200 mg QAM PO Last administered on 07/19/16 08:43; Admin Dose 200 MG; Start 07/18/16 at 09:00 Trazodone HCl (Desyrel) 200 mg QHS PO Last administered on 07/18/16 20:33; Admin Dose 200 MG; Start 07/17/16 at 21:00 Warfarin Sodium (Coumadin) 5 mg DAILY@17 PO Last administered on 07/18/16 17: 14; Admin Dose 5 MG; Start 07/17/16 at 19:00 Insulin Glargine (Lantus) 48 unit QHS SC Last administered on 07/18/16 20:37; Admin Dose 48 UNIT; Start 07/17/16 at 21:00 Miscellaneous Information 1 ea NOTE XX ; Start 07/17/16 at 19:00 Glucose (Glutose) 15 gm Q15M PRN PO DECREASED GLUCOSE; Start 07/17/16 at 19:00 Glucose (Glutose) 22.5 gm Q15M PRN PO DECREASED GLUCOSE; Start 07/17/16 at 19:00 Dextrose (D50w Syringe) 25 ml Q15M PRN IV DECREASED GLUCOSE; Start 07/17/16 at 19:00 Dextrose (D50w Syringe) 50 ml Q15M PRN IV DECREASED GLUCOSE; Start 07/17/16 at 19:00 Glucagon (Glucagen) 1 mg Q15M PRN IM DECREASED GLUCOSE; Start 07/17/16 at 19:00 Glucose (Glutose) 15 gm Q15M PRN BUCCAL DECREASED GLUCOSE; Start 07/17/16 at 19: 00 Hydralazine HCl (Apresoline) 10 mg Q6H PRN IV SBP>160; Start 07/17/16 at 19:00 Nicotine (Nicoderm 14 Mg/ 24hr) 1 patch DAILY TRANSDERM Last administered on 08:45; Admin Dose 1 PATCH; Start 07/17/16 at 20:00 Methylprednisolone Sodium Succinate 60 mg 60 mg Q12H IV Last administered on 08:45; Admin Dose 60 MG; Start 07/18/16 at 21:00 Ceftriaxone Sodium 50 ml @ 100 mls/hr Q24H IVPB Last administered on 14:32; Admin Dose 100 MLS/HR; Start 07/18/16 at 14:00 Azithromycin (Zithromax 500mg/ NS (Pmx)) 250 ml @ 250 mls/hr Q24H IVPB Last administered on 07/18/16 15:22; Admin Dose 250 MLS/HR; Start 07/18/16 at 15:00 MARGARITO ALBARRAN NP Jul 19, 2016 12:36
[2016-07-19] MEDS: CEFTRIAXONE 2 GM/50 ML (PMX) 50 ML IVPB SCH (14:14)
--- NOTE | 2016-07-19 14:24 | CONS ---
Date/Time of Note Date/Time of Note DATE: 07/19/16 TIME: 14:17 Assessment/Plan Assessment/Plan Chief Complaint/Hosp Course Imp: 1. AVR 2.HTN 3.CHF-diastolic acute on chronic 4. COPD excerbation 5. Tob 6.PPM 7. WEakness 8. Anemia 9. Coagulopathy Recc: -Tele -serial ecg's -Continue current BB/losartan/norvasc -Continue steroids/Bronchodilators -Continue lasix diuresis and follow-up volujme status closely -Continue asa -Continue broad spectrum abx's Problems: Consultation Date/Type/Reason Admit Date/Time Jul 17, 2016 at 17:33 Initial Consult Date 07/19/2016 Type of Consultation: Cardiology Reason for Consultation AVR Referring Provider: PASCALE HERNANDEZ MD Exam/Review of Systems Vital Signs Vitals Vital Signs Date Time Temp Pulse Resp B/P Pulse Ox O2 Delivery O2 Flow Rate FiO2 07/19/16 13:53 82 18 98 Nasal Cannula 4.0 07/19/16 11:51 98.5 161/71 07/18/16 19:15 35 Intake and Output 07/18/16 07/18/16 07/19/16 15:00 23:00 07:00 Intake Total 1250 ml 700 ml Balance 1250 ml 700 ml Exam Review of Systems: CONSTITUTIONAL: No fevers, chills. PULMONARY: No sob CARDIOVASCULAR: No chest pain/palpitations GASTROINTESTINAL: No nausea/vomiting. GENITOURINARY: No hematuria/dysuria. MUSCULOSKELETAL: No myagias/arthalgias. PSYCHIATRIC: The patient denies depression. NEUROLOGIC: No weakness Constitutional: alert Psych: no complaints Head: normocephalic ENMT: mucosa pink and moist Neck: supple Respiratory: clear to auscultation Cardiovascular: regular rate and rhythm Gastrointestinal: soft Musculoskeletal: muscle tone (normal) Extremities: edema (none) Neurological: other (No focal deficits) Results Result Diagram: 07/19/16 0620 07/19/16 0620 Results 24 hrs Laboratory Tests Test 07/18/16 17:03 07/18/16 20:26 07/19/16 06:20 07/19/16 08:29 Bedside Glucose 154 137 243 H Anion Gap 16 Basophils # 0.0 Basophils % 0.5 Blood Morphology Comment Blood Urea Nitrogen 24 H Calcium Level 9.2 Carbon Dioxide Level 29 Chloride Level 102 Creatinine 0.91 Eosinophils # 0.0 Eosinophils % 0.0 Glucose Level 302 H Hematocrit 33.3 L Hemoglobin 10.6 L INR International Normalized Ratio 2.98 Lymphocytes # 0.9 Lymphocytes % 17.7 Magnesium Level 2.0 Mean Corpuscular Hemoglobin 28.4 L Mean Corpuscular Hemoglobin Concent 31.7 L Mean Corpuscular Volume 89.6 Mean Platelet Volume 9.7 Monocytes # 0.2 L Monocytes % 4.2 Neutrophils # 4.2 Neutrophils % 77.6 H Nucleated Red Blood Cells # 0.0 Nucleated Red Blood Cells % 0.0 Phosphorus Level 4.2 Platelet Count 160 Potassium Level 4.6 Prothrombin Time 31.4 H Prothrombin Time Ratio 2.5 Red Blood Count 3.72 L Red Cell Distribution Width 24.8 H Sodium Level 142 White Blood Count 5.4 Test 07/19/16 12:07 Bedside Glucose 183 Medications Medications Current Medications Lorazepam (Ativan) 0.5 mg Q6H PRN IV ANXIETY; Start 07/17/16 at 18:30 Ondansetron HCl (Zofran Inj) 4 mg Q6H PRN IV NAUSEA AND/OR VOMITING Last administered on 07/17/16 20:24; Admin Dose 4 MG; Start 07/17/16 at 18:30 Aspirin (Aspirin) 81 mg DAILY PO Last administered on 07/19/16 08:44; Admin Dose 81 MG; Start 07/18/16 at 09:00 Nitroglycerin (Nitroglycerin (Sl Tab) 0.4 Mg) 1 tab Q5M PRN SL CHEST PAIN; Start 07/17/16 at 18:30 Acetaminophen (Tylenol Tab) 650 mg Q6H PRN PO PAIN LEVEL 1-3 OR FEVER; Start at 18:30 Acetaminophen/ Hydrocodone Bitart ([place] (5/325)) 1 tab Q6H PRN PO PAIN LEVEL 4 -6 Last administered on 07/18/16 13:14; Admin Dose 1 TAB; Start 07/17/16 at 18: 30 Morphine Sulfate (morphine) 2 mg Q4H PRN IV PAIN LEVEL 7-10 Last administered on 07/18/16 23:09; Admin Dose 2 MG; Start 07/17/16 at 18:30 Magnesium Hydroxide (Milk Of Mag) 30 ml DAILY PRN PO CONSTIPATION; Start at 18:30 Bisacodyl (Dulcolax) 5 mg DAILY PRN PO CONSTIPATION; Start 07/17/16 at 18:30 Atorvastatin Calcium (Lipitor) 80 mg QHS PO Last administered on 07/18/16 20: 33; Admin Dose 80 MG; Start 07/17/16 at 21:00 Gabapentin (Neurontin) 600 mg BID PO Last administered on 07/19/16 08:43; Admin Dose 600 MG; Start 07/17/16 at 21:00 Haloperidol (Haldol) 4 mg QHS PO Last administered on 07/18/16 20:33; Admin Dose 4 MG; Start 07/17/16 at 21:00 Losartan Potassium (Cozaar) 100 mg DAILY PO Last administered on 07/19/16 08: 44; Admin Dose 100 MG; Start 07/18/16 at 09:00 Metoprolol Tartrate (Lopressor) 25 mg BID PO Last administered on 07/19/16 08: 45; Admin Dose 25 MG; Start 07/17/16 at 21:00 Pantoprazole (Protonix Tab) 40 mg DAILY@06 PO Last administered on 07/19/16 05 :17; Admin Dose 40 MG; Start 07/18/16 at 06:00 Sertraline HCl (Zoloft) 200 mg QAM PO Last administered on 07/19/16 08:43; Admin Dose 200 MG; Start 07/18/16 at 09:00 Trazodone HCl (Desyrel) 200 mg QHS PO Last administered on 07/18/16 20:33; Admin Dose 200 MG; Start 07/17/16 at 21:00 Warfarin Sodium (Coumadin) 5 mg DAILY@17 PO Last administered on 07/18/16 17: 14; Admin Dose 5 MG; Start 07/17/16 at 19:00 Insulin Glargine (Lantus) 48 unit QHS SC Last administered on 07/18/16 20:37; Admin Dose 48 UNIT; Start 07/17/16 at 21:00 Miscellaneous Information 1 ea NOTE XX ; Start 07/17/16 at 19:00 Glucose (Glutose) 15 gm Q15M PRN PO DECREASED GLUCOSE; Start 07/17/16 at 19:00 Glucose (Glutose) 22.5 gm Q15M PRN PO DECREASED GLUCOSE; Start 07/17/16 at 19:00 Dextrose (D50w Syringe) 25 ml Q15M PRN IV DECREASED GLUCOSE; Start 07/17/16 at 19:00 Dextrose (D50w Syringe) 50 ml Q15M PRN IV DECREASED GLUCOSE; Start 07/17/16 at 19:00 Glucagon (Glucagen) 1 mg Q15M PRN IM DECREASED GLUCOSE; Start 07/17/16 at 19:00 Glucose (Glutose) 15 gm Q15M PRN BUCCAL DECREASED GLUCOSE; Start 07/17/16 at 19: 00 Hydralazine HCl (Apresoline) 10 mg Q6H PRN IV SBP>160; Start 07/17/16 at 19:00 Nicotine 1 patch 1 patch DAILY TRANSDERM Last administered on 07/19/16 08:45; Admin Dose 1 PATCH; Start 07/17/16 at 20:00 Ceftriaxone Sodium 50 ml @ 100 mls/hr Q24H IVPB Last administered on 14:32; Admin Dose 100 MLS/HR; Start 07/18/16 at 14:00 Azithromycin (Zithromax 500mg/ NS (Pmx)) 250 ml @ 250 mls/hr Q24H IVPB Last administered on 07/18/16 15:22; Admin Dose 250 MLS/HR; Start 07/18/16 at 15:00 Methylprednisolone Sodium Succinate (Solu-Medrol) 40 mg Q12 IV ; Start 07/19/16 at 21:00 Amlodipine Besylate (Norvasc) 10 mg DAILY PO ; Start 07/20/16 at 09:00 CHLOE FISHMAN Jul 19, 2016 14:23
[2016-07-19] MEDS: AZITHROMYCIN 500MG/NS (PMX) 250 ML IVPB SCH (15:47)
--- NOTE | 2016-07-19 17:21 | RADRPT ---
PROCEDURE: XR Chest. CLINICAL INDICATION: Shortness of breath. TECHNIQUE: Single frontal view. COMPARISON: 07/17/2016. FINDINGS: There is diffuse bilateral air space and interstitial disease with lower lobe predominance consisten t with pulmonary edema, worse than seen previously. The lungs are otherwise clear. The heart is enlarged. Calcification is present in the aorta consistent with atherosclerosis. There is a dual lead left-sided permanent pacemaker. There is a transcatheter aortic valve replacement. There is no pleural effusion. There is no pneumothorax. IMPRESSION: 1. Pulmonary edema, worse than seen previously. 2. No other new abnormality. RPTAT: QQ .Tao Mcmahon MD, MD Date Time Electronically viewed and signed by .Tao Mcmahon MD, MD on 07/19/2016 17:21 .R/
[2016-07-19] MEDS: WARFARIN 5 MG TAB PO SCH (17:44)
[2016-07-19] MEDS: HYDROCODONE/APAP (5/325) TAB PO PRN (20:57)
[2016-07-19] MEDS: ATORVASTATIN 80 MG TAB PO SCH (20:57)
[2016-07-19] MEDS: traZODone 100 MG TAB PO SCH (21:40)
[2016-07-19] MEDS: HALOPERIDOL 1 MG TAB PO SCH (21:41)
[2016-07-19] MEDS: METHYLPREDNISOLONE 40 MG INJ IV SCH (21:43)
[2016-07-19] MEDS: INSULIN GLARGINE [LANtus] 3 ML PEN SC SCH (21:57)
[2016-07-19] MEDS: morphine 2 MG INJ IV PRN (23:55)
[2016-07-20] VITALS (10 sets, daily range): BP systolic 139–163; BP diastolic 63–71; PULSE 61–72; RESP 17–20
[2016-07-20] MEDS: PANTOPRAZOLE (EC) 40 MG TAB PO SCH (06:27)
[2016-07-20] MEDS: FUROSEMIDE 40 MG INJ IV SCH ×2 (06:27→17:27)
[2016-07-20] MEDS: ALBUTEROL/IPRATROPIUM (NEB) 3 ML AMP HHN SCH ×3 (08:00→19:51)
[2016-07-20 08:07] LABS: BASOPHILS % 0.1 % (0.0-2.0); EOSINOPHILS % 0.1 % (0.0-7.0); HEMATOCRIT 36.7 % (37.0-47.0); HEMOGLOBIN 11.8 g/dl (12.0-16.0); LYMPHOCYTES # 1.3 10^3/ul (0.8-2.9); LYMPHOCYTES % 20.8 % (15.0-51.0); MEAN CORPUSCULAR HEMOGLOBIN 28.3 pg (29.0-33.0); MEAN CORPUSCULAR VOLUME 88.4 fl (82.0-101.0); MEAN PLATELET VOLUME 9.8 fl (7.4-10.4); MONOCYTE # 0.4 10^3/ul (0.3-0.9); MONOCYTES % 6.9 % (0.0-11.0); NEUTROPHIL # 4.6 10^3/ul (1.6-7.5); NEUTROPHILS % 72.1 % (39.0-77.0); PLATELET COUNT 173 10^3/UL (140-440); RED BLOOD COUNT 4.15 10^6/ul (4.20-5.40); RED CELL DISTRIBUTION WIDTH 25.2 % (11.5-14.5); UNCORRECTED WBC 6.3 10^3/ul (4.8-10.8); WHITE BLOOD COUNT 6.3 10^3/ul (4.8-10.8)
[2016-07-20 08:09] LABS: CREATININE 0.82 mg/dl (0.44-1.00)
[2016-07-20 08:10] LABS: CALCIUM 9.7 mg/dl (8.4-10.2)
[2016-07-20 08:29] LABS: CONDITION 1; LH ANALYZER COMMENTS 1; SUSPECT 1
[2016-07-20 08:45] LABS: INR 2.97; PROTIME 31.3 Sec (12.2-14.2); PT RATIO 2.4
[2016-07-20] MEDS: NICOTINE (14 MG/24 HR) PATCH TRANSDERM SCH (10:11)
[2016-07-20] MEDS: LOSARTAN 50 MG TAB PO SCH (10:11)
[2016-07-20] MEDS: GABAPENTIN 300 MG CAP PO SCH ×2 (10:11→20:12)
[2016-07-20] MEDS: AMLODIPINE 10 MG TAB PO SCH (10:12)
[2016-07-20] MEDS: METOPROLOL 25 MG TAB PO SCH (10:12)
[2016-07-20] MEDS: SERTRALINE 100 MG TAB PO SCH (10:12)
[2016-07-20] MEDS: ASPIRIN 81 MG TAB PO SCH (10:12)
[2016-07-20] MEDS: METHYLPREDNISOLONE 40 MG INJ IV SCH ×2 (10:13→20:11)
[2016-07-20] MEDS: INSULIN ASPART [NOVOLOG] 3 ML PEN SC SCH ×6 (10:14→22:25)
--- NOTE | 2016-07-20 11:45 | PN ---
Date/Time of Note Date/Time of Note DATE: 07/20/16 TIME: 11:42 Assessment/Plan VTE Prophylaxis VTE Prophylaxis Intervention: other (Warfarin) Lines/Catheters IV Catheter Type (from [facility] Peripheral IV Urinary Cath still in place: No Assessment/Plan Chief Complaint/Hosp Course 1. Acute on chronic respiratory failure. Hypoxic. Most probably secondary to underlying congestive heart failure exacerbation with a component of chronic obstructive pulmonary disease. The patient will be continued on supplemental oxygen. The patient will be continued on aggressive diuresis. The patient will be maintained on inhaled bronchodilators. 2. Congestive heart failure exacerbation. Acute on chronic diastolic dysfunction. The patient will be aggressively diuresed using diuretics. Cardiology following. Serial troponins negative. 3. Chronic obstructive pulmonary disease exacerbation. The patient will be maintained on inhaled bronchodilators. The patient will be continued on tapering dose of steroids. ABG shows hypoxia and no evidence of any underlying CO2 retention. 4. Essential hypertension. Continue home antihypertensives. Continue p.r.n. antihypertensives for any systolic blood pressure readings greater than 160 mmHg. 5. Type 2 diabetes mellitus. Hemoglobin A1c 5.8. The patient will be continued on sliding scale insulin along with Lantus insulin and basal insulin. 6. Status post aortic valve replacement. The patient's INR is therapeutic. The patient will be continued on warfarin. Daily PT/INR will be ordered. 7. Nicotine use. Cessation will be advised. The patient will be provided with a nicotine patch. 8. Pulmonary hypertension, PA pressure 43 mmHg as per 2-D echocardiogram done on 02/29/2016. The patient will be provided with supplemental oxygen. The patient will be maintained on calcium channel blockers. 9. Depression. The patient will be continued on antidepressants. 10. Nonsustained ventricular tachycardia. Cardiology following the patient. Continue beta blockers. 11. Fluids, electrolytes, and nutrition. Carbohydrate controlled diet. 12. DVT prophylaxis. On warfarin. 13. Gastrointestinal prophylaxis. Proton pump inhibitors. 14. Plan. Continue diuresis. Continue inhaled bronchodilators. Continue tapering dose of steroids. Adjust insulin dosing to obtain optimal blood sugar control. Case discussed with . Problems: Subjective 24 Hr Interval Summary Free Text/Dictation Denies any chest pain. Had 7 beats of nonsustained V. tach today. Exam/Review of Systems Vital Signs Vitals Vital Signs Date Time Temp Pulse Resp B/P Pulse Ox O2 Delivery O2 Flow Rate FiO2 1/12/17 08:34 72 07/20/16 08:22 98.1 20 141/64 96 07/20/16 08:07 07/18/16 19:15 35 Intake and Output 07/19/16 07/19/16 07/20/16 14:59 22:59 06:59 Intake Total 1080 ml 500 ml Balance 1080 ml 500 ml Exam GENERAL: This is a 61-year-old female lying in bed in mild to moderate respiratory distress. HEENT: Head normocephalic and atraumatic. Eyes: Anicteric sclerae. Conjunctivae clear. ENT: Nasal septum is midline. Oral mucosa is dry. NECK: Supple. JVD noticed. RESPIRATORY: Bilaterally diminished breath sounds. Use of accessory muscles of respiration. Bilateral fine rales are heard. Bilateral expiratory wheezing. CARDIAC: Regular rate and rhythm with a soft systolic murmur. ABDOMEN: Soft, nontender and nondistended. Bowel sounds positive in all 4 quadrants. GENITOURINARY: Deferred. EXTREMITIES: No cyanosis, no clubbing. Bilateral lower extremity 1+ pitting edema. Peripheral pulses palpable. NEUROLOGIC: The patient is awake, alert and oriented. Cranial nerves are grossly intact. Results Result Diagram: 07/20/16 0700 07/20/16 0708 Results 24 hrs Laboratory Tests Test 07/19/16 12:07 07/19/16 17:42 07/19/16 21:47 07/20/16 02:24 Bedside Glucose 183 414 *H 358 H 287 H Test 07/20/16 07:00 07/20/16 07:08 07/20/16 07:47 07/20/16 11:35 Basophils # 0.0 Basophils % 0.1 Blood Morphology Comment Eosinophils # 0.0 Eosinophils % 0.1 Hematocrit 36.7 L Hemoglobin 11.8 L Lymphocytes # 1.3 Lymphocytes % 20.8 Mean Corpuscular Hemoglobin 28.3 L Mean Corpuscular Hemoglobin Concent 32.0 Mean Corpuscular Volume 88.4 Mean Platelet Volume 9.8 Monocytes # 0.4 Monocytes % 6.9 Neutrophils # 4.6 Neutrophils % 72.1 Nucleated Red Blood Cells # 0.0 Nucleated Red Blood Cells % 0.0 Platelet Count 173 Red Blood Count 4.15 L Red Cell Distribution Width 25.2 H White Blood Count 6.3 Anion Gap 19 H B-Type Natriuretic Peptide 1480 H Blood Urea Nitrogen 28 H Calcium Level 9.7 Carbon Dioxide Level 29 Chloride Level 100 Creatinine 0.82 Glucose Level 305 H INR International Normalized Ratio 2.97 Magnesium Level 2.0 Phosphorus Level 4.0 Potassium Level 4.0 Prothrombin Time 31.3 H Prothrombin Time Ratio 2.4 Sodium Level 144 Bedside Glucose 335 H 182 Medications Medications Current Medications Lorazepam (Ativan) 0.5 mg Q6H PRN IV ANXIETY; Start 07/17/16 at 18:30 Ondansetron HCl (Zofran Inj) 4 mg Q6H PRN IV NAUSEA AND/OR VOMITING Last administered on 07/17/16 20:24; Admin Dose 4 MG; Start 07/17/16 at 18:30 Aspirin (Aspirin) 81 mg DAILY PO Last administered on 07/20/16 10:12; Admin Dose 81 MG; Start 07/18/16 at 09:00 Nitroglycerin (Nitroglycerin (Sl Tab) 0.4 Mg) 1 tab Q5M PRN SL CHEST PAIN; Start 07/17/16 at 18:30 Acetaminophen (Tylenol Tab) 650 mg Q6H PRN PO PAIN LEVEL 1-3 OR FEVER; Start at 18:30 Acetaminophen/ Hydrocodone Bitart ([place] (5/325)) 1 tab Q6H PRN PO PAIN LEVEL 4 -6 Last administered on 07/19/16 20:57; Admin Dose 1 TAB; Start 07/17/16 at 18: 30 Morphine Sulfate (morphine) 2 mg Q4H PRN IV PAIN LEVEL 7-10 Last administered on 07/19/16 23:55; Admin Dose 2 MG; Start 07/17/16 at 18:30 Magnesium Hydroxide (Milk Of Mag) 30 ml DAILY PRN PO CONSTIPATION; Start at 18:30 Bisacodyl (Dulcolax) 5 mg DAILY PRN PO CONSTIPATION; Start 07/17/16 at 18:30 Atorvastatin Calcium (Lipitor) 80 mg QHS PO Last administered on 07/19/16 20: 57; Admin Dose 80 MG; Start 07/17/16 at 21:00 Gabapentin (Neurontin) 600 mg BID PO Last administered on 07/20/16 10:11; Admin Dose 600 MG; Start 07/17/16 at 21:00 Haloperidol (Haldol) 4 mg QHS PO Last administered on 07/19/16 21:41; Admin Dose 4 MG; Start 07/17/16 at 21:00 Losartan Potassium (Cozaar) 100 mg DAILY PO Last administered on 07/20/16 10: 11; Admin Dose 100 MG; Start 07/18/16 at 09:00 Metoprolol Tartrate (Lopressor) 25 mg BID PO Last administered on 07/20/16 10: 12; Admin Dose 25 MG; Start 07/17/16 at 21:00 Pantoprazole (Protonix Tab) 40 mg DAILY@06 PO Last administered on 07/20/16 06 :27; Admin Dose 40 MG; Start 07/18/16 at 06:00 Sertraline HCl (Zoloft) 200 mg QAM PO Last administered on 07/20/16 10:12; Admin Dose 200 MG; Start 07/18/16 at 09:00 Trazodone HCl (Desyrel) 200 mg QHS PO Last administered on 07/19/16 21:40; Admin Dose 200 MG; Start 07/17/16 at 21:00 Warfarin Sodium (Coumadin) 5 mg DAILY@17 PO Last administered on 07/19/16 17: 44; Admin Dose 5 MG; Start 07/17/16 at 19:00 Miscellaneous Information 1 ea NOTE XX ; Start 07/17/16 at 19:00 Glucose (Glutose) 15 gm Q15M PRN PO DECREASED GLUCOSE; Start 07/17/16 at 19:00 Glucose (Glutose) 22.5 gm Q15M PRN PO DECREASED GLUCOSE; Start 07/17/16 at 19:00 Dextrose (D50w Syringe) 25 ml Q15M PRN IV DECREASED GLUCOSE; Start 07/17/16 at 19:00 Dextrose (D50w Syringe) 50 ml Q15M PRN IV DECREASED GLUCOSE; Start 07/17/16 at 19:00 Glucagon (Glucagen) 1 mg Q15M PRN IM DECREASED GLUCOSE; Start 07/17/16 at 19:00 Glucose (Glutose) 15 gm Q15M PRN BUCCAL DECREASED GLUCOSE; Start 07/17/16 at 19: 00 Hydralazine HCl (Apresoline) 10 mg Q6H PRN IV SBP>160 Last administered on 07/19 21:43; Admin Dose 10 MG; Start 07/17/16 at 19:00 Nicotine 1 patch 1 patch DAILY TRANSDERM Last administered on 07/20/16 10:11; Admin Dose 1 PATCH; Start 07/17/16 at 20:00 Ceftriaxone Sodium 50 ml @ 100 mls/hr Q24H IVPB Last administered on 14:14; Admin Dose 100 MLS/HR; Start 07/18/16 at 14:00 Azithromycin (Zithromax 500mg/ NS (Pmx)) 250 ml @ 250 mls/hr Q24H IVPB Last administered on 07/19/16 15:47; Admin Dose 250 MLS/HR; Start 07/18/16 at 15:00 Methylprednisolone Sodium Succinate (Solu-Medrol) 40 mg Q12 IV Last administered on 07/20/16 10:13; Admin Dose 40 MG; Start 07/19/16 at 21:00 Amlodipine Besylate (Norvasc) 10 mg DAILY PO Last administered on 07/20/16 10: 12; Admin Dose 10 MG; Start 07/20/16 at 09:00 Insulin Glargine (Lantus) 54 unit HS SC ; Start 07/20/16 at 21:00 MARGARITO ALBARRAN NP Jul 20, 2016 11:45
[2016-07-20] MEDS: CEFTRIAXONE 2 GM/50 ML (PMX) 50 ML IVPB SCH (13:42)
--- NOTE | 2016-07-20 14:36 | RADRPT ---
PROCEDURE: XR Chest. CLINICAL INDICATION: Shortness of breath. TECHNIQUE: Single frontal view. COMPARISON: 07/19/2016. FINDINGS: There is diffuse interstitial and alveolar disease bilaterally consistent with pulmonary edema, impr bernadette. The lungs are otherwise clear with no focal airspace disease to suggest pneumonia. The heart is enlarged. There is calcification in the aorta consistent with atherosclerosis. There is a dual lead left-sided permanent pacemaker and a transcatheter aortic valve replacement. There is no pleural effusion. There is no pneumothorax. IMPRESSION: 1. Improved pulmonary edema. 2. No other change from 07/19/2016. RPTAT: QQ .Tao Mcmahon MD, MD Date Time Electronically viewed and signed by .Tao Mcmahon MD, MD on 07/20/2016 14:36 .R/
[2016-07-20] MEDS: AZITHROMYCIN 500MG/NS (PMX) 250 ML IVPB SCH (15:06)
[2016-07-20] MEDS: WARFARIN 5 MG TAB PO SCH (16:47)
--- NOTE | 2016-07-20 18:31 | CONS ---
Date/Time of Note Date/Time of Note DATE: 07/20/16 TIME: 18:29 Assessment/Plan Assessment/Plan Chief Complaint/Hosp Course Imp: 1. AVR 2.HTN 3.CHF-diastolic acute on chronic 4. COPD excerbation 5. Tob 6.PPM 7. WEakness 8. Anemia 9. Coagulopathy Recc: -Tele -serial ecg's -Continue losartan/norvasc -Increase BB in attempt to improve SBP -Continue steroids/Bronchodilators -Continue lasix diuresis and follow-up volume status closely -Continue asa -Continue broad spectrum abx's Problems: Consultation Date/Type/Reason Admit Date/Time Jul 17, 2016 at 17:33 Initial Consult Date 07/19/2016 Type of Consultation: Cardiology Reason for Consultation HTN/CHF/AVR Referring Provider: PASCALE HERNANDEZ MD Exam/Review of Systems Vital Signs Vitals Vital Signs Date Time Temp Pulse Resp B/P Pulse Ox O2 Delivery O2 Flow Rate FiO2 07/20/16 17:04 64 07/20/16 16:32 98.1 20 147/64 96 07/20/16 15:01 4.0 07/20/16 15:00 Nasal Cannula 07/18/16 19:15 35 Intake and Output 07/19/16 07/19/16 07/20/16 15:00 23:00 07:00 Intake Total 1080 ml 500 ml Balance 1080 ml 500 ml Exam Review of Systems: CONSTITUTIONAL: No fevers, chills. PULMONARY: No sob CARDIOVASCULAR: No chest pain/palpitations GASTROINTESTINAL: No nausea/vomiting. GENITOURINARY: No hematuria/dysuria. MUSCULOSKELETAL: No myagias/arthalgias. PSYCHIATRIC: The patient denies depression. NEUROLOGIC: No weakness Constitutional: alert, oriented Psych: no complaints Head: normocephalic ENMT: mucosa pink and moist Neck: jvd (9 cm water), supple Respiratory: diminished breath sounds Cardiovascular: regular rate and rhythm Gastrointestinal: non-tender, soft Musculoskeletal: muscle tone (normal) Extremities: edema Neurological: other (No focal deficits) Results Result Diagram: 07/20/16 0700 07/20/16 0708 Results 24 hrs Laboratory Tests Test 07/19/16 21:47 07/20/16 02:24 07/20/16 07:00 07/20/16 07:08 Bedside Glucose 358 H 287 H Basophils # 0.0 Basophils % 0.1 Blood Morphology Comment Eosinophils # 0.0 Eosinophils % 0.1 Hematocrit 36.7 L Hemoglobin 11.8 L Lymphocytes # 1.3 Lymphocytes % 20.8 Mean Corpuscular Hemoglobin 28.3 L Mean Corpuscular Hemoglobin Concent 32.0 Mean Corpuscular Volume 88.4 Mean Platelet Volume 9.8 Monocytes # 0.4 Monocytes % 6.9 Neutrophils # 4.6 Neutrophils % 72.1 Nucleated Red Blood Cells # 0.0 Nucleated Red Blood Cells % 0.0 Platelet Count 173 Red Blood Count 4.15 L Red Cell Distribution Width 25.2 H White Blood Count 6.3 Anion Gap 19 H B-Type Natriuretic Peptide 1480 H Blood Urea Nitrogen 28 H Calcium Level 9.7 Carbon Dioxide Level 29 Chloride Level 100 Creatinine 0.82 Glucose Level 305 H INR International Normalized Ratio 2.97 Magnesium Level 2.0 Phosphorus Level 4.0 Potassium Level 4.0 Prothrombin Time 31.3 H Prothrombin Time Ratio 2.4 Sodium Level 144 Test 07/20/16 07:47 07/20/16 11:35 07/20/16 16:42 Bedside Glucose 335 H 182 133 Medications Medications Current Medications Lorazepam (Ativan) 0.5 mg Q6H PRN IV ANXIETY; Start 07/17/16 at 18:30 Ondansetron HCl (Zofran Inj) 4 mg Q6H PRN IV NAUSEA AND/OR VOMITING Last administered on 07/17/16 20:24; Admin Dose 4 MG; Start 07/17/16 at 18:30 Aspirin (Aspirin) 81 mg DAILY PO Last administered on 07/20/16 10:12; Admin Dose 81 MG; Start 07/18/16 at 09:00 Nitroglycerin (Nitroglycerin (Sl Tab) 0.4 Mg) 1 tab Q5M PRN SL CHEST PAIN; Start 07/17/16 at 18:30 Acetaminophen (Tylenol Tab) 650 mg Q6H PRN PO PAIN LEVEL 1-3 OR FEVER; Start at 18:30 Acetaminophen/ Hydrocodone Bitart ([place] (5/325)) 1 tab Q6H PRN PO PAIN LEVEL 4 -6 Last administered on 07/19/16 20:57; Admin Dose 1 TAB; Start 07/17/16 at 18: 30 Morphine Sulfate (morphine) 2 mg Q4H PRN IV PAIN LEVEL 7-10 Last administered on 07/19/16 23:55; Admin Dose 2 MG; Start 07/17/16 at 18:30 Magnesium Hydroxide (Milk Of Mag) 30 ml DAILY PRN PO CONSTIPATION; Start at 18:30 Bisacodyl (Dulcolax) 5 mg DAILY PRN PO CONSTIPATION Last administered on 16:47; Admin Dose 5 MG; Start 07/17/16 at 18:30 Atorvastatin Calcium (Lipitor) 80 mg QHS PO Last administered on 07/19/16 20: 57; Admin Dose 80 MG; Start 07/17/16 at 21:00 Gabapentin (Neurontin) 600 mg BID PO Last administered on 07/20/16 10:11; Admin Dose 600 MG; Start 07/17/16 at 21:00 Haloperidol (Haldol) 4 mg QHS PO Last administered on 07/19/16 21:41; Admin Dose 4 MG; Start 07/17/16 at 21:00 Losartan Potassium (Cozaar) 100 mg DAILY PO Last administered on 07/20/16 10: 11; Admin Dose 100 MG; Start 07/18/16 at 09:00 Metoprolol Tartrate (Lopressor) 25 mg BID PO Last administered on 07/20/16 10: 12; Admin Dose 25 MG; Start 07/17/16 at 21:00 Pantoprazole (Protonix Tab) 40 mg DAILY@06 PO Last administered on 07/20/16 06 :27; Admin Dose 40 MG; Start 07/18/16 at 06:00 Sertraline HCl (Zoloft) 200 mg QAM PO Last administered on 07/20/16 10:12; Admin Dose 200 MG; Start 07/18/16 at 09:00 Trazodone HCl (Desyrel) 200 mg QHS PO Last administered on 07/19/16 21:40; Admin Dose 200 MG; Start 07/17/16 at 21:00 Warfarin Sodium (Coumadin) 5 mg DAILY@17 PO Last administered on 07/20/16 16: 47; Admin Dose 5 MG; Start 07/17/16 at 19:00 Miscellaneous Information 1 ea NOTE XX ; Start 07/17/16 at 19:00 Glucose (Glutose) 15 gm Q15M PRN PO DECREASED GLUCOSE; Start 07/17/16 at 19:00 Glucose (Glutose) 22.5 gm Q15M PRN PO DECREASED GLUCOSE; Start 07/17/16 at 19:00 Dextrose (D50w Syringe) 25 ml Q15M PRN IV DECREASED GLUCOSE; Start 07/17/16 at 19:00 Dextrose (D50w Syringe) 50 ml Q15M PRN IV DECREASED GLUCOSE; Start 07/17/16 at 19:00 Glucagon (Glucagen) 1 mg Q15M PRN IM DECREASED GLUCOSE; Start 07/17/16 at 19:00 Glucose (Glutose) 15 gm Q15M PRN BUCCAL DECREASED GLUCOSE; Start 07/17/16 at 19: 00 Hydralazine HCl (Apresoline) 10 mg Q6H PRN IV SBP>160 Last administered on 07/19 21:43; Admin Dose 10 MG; Start 07/17/16 at 19:00 Nicotine 1 patch 1 patch DAILY TRANSDERM Last administered on 07/20/16 10:11; Admin Dose 1 PATCH; Start 07/17/16 at 20:00 Ceftriaxone Sodium 50 ml @ 100 mls/hr Q24H IVPB Last administered on 13:42; Admin Dose 100 MLS/HR; Start 07/18/16 at 14:00 Azithromycin (Zithromax 500mg/ NS (Pmx)) 250 ml @ 250 mls/hr Q24H IVPB Last administered on 07/20/16 15:06; Admin Dose 250 MLS/HR; Start 07/18/16 at 15:00 Methylprednisolone Sodium Succinate (Solu-Medrol) 40 mg Q12 IV Last administered on 07/20/16 10:13; Admin Dose 40 MG; Start 07/19/16 at 21:00 Amlodipine Besylate (Norvasc) 10 mg DAILY PO Last administered on 07/20/16 10: 12; Admin Dose 10 MG; Start 07/20/16 at 09:00 Insulin Glargine (Lantus) 54 unit HS SC ; Start 07/20/16 at 21:00 CHLOE FISHMAN Jul 20, 2016 18:31
[2016-07-20] MEDS: morphine 2 MG INJ IV PRN (20:11)
[2016-07-20] MEDS: ATORVASTATIN 80 MG TAB PO SCH (20:12)
[2016-07-20] MEDS: traZODone 100 MG TAB PO SCH (20:12)
[2016-07-20] MEDS: METOPROLOL 50 MG TAB PO SCH (20:13)
[2016-07-20] MEDS ORDERED: INSULIN GLARGINE [LANtus] 3 ML PEN SC SCH (21:00)
[2016-07-20] MEDS: HALOPERIDOL 1 MG TAB PO SCH (22:27)
[2016-07-21] VITALS (9 sets, daily range): BP systolic 136–160; BP diastolic 63–71; PULSE 59–60; RESP 18–61
[2016-07-21] MEDS: FUROSEMIDE 40 MG INJ IV SCH (06:09)
[2016-07-21] MEDS: PANTOPRAZOLE (EC) 40 MG TAB PO SCH (06:09)
[2016-07-21 06:53] LABS: HEMATOCRIT 37.8 % (37.0-47.0); HEMOGLOBIN 12.1 g/dl (12.0-16.0); LYMPHOCYTES # 2.2 10^3/ul (0.8-2.9); LYMPHOCYTES % 31.6 % (15.0-51.0); MEAN CORPUSCULAR HEMOGLOBIN 28.2 pg (29.0-33.0); MONOCYTE # 0.7 10^3/ul (0.3-0.9); MONOCYTES % 10.4 % (0.0-11.0); NEUTROPHIL # 4.1 10^3/ul (1.6-7.5); PLATELET COUNT 180 10^3/UL (140-440); RED BLOOD COUNT 4.29 10^6/ul (4.20-5.40); RED CELL DISTRIBUTION WIDTH 23.7 % (11.5-14.5); UNCORRECTED WBC 7.1 10^3/ul (4.8-10.8); WHITE BLOOD COUNT 7.1 10^3/ul (4.8-10.8)
[2016-07-21 07:03] LABS: INR 3.03; PROTIME 31.8 Sec (12.2-14.2); PT RATIO 2.5
[2016-07-21 07:06] LABS: PHOSPHORUS 4.9 mg/dl (2.5-4.9)
[2016-07-21 07:17] LABS: POTASSIUM 4.5 mmol/L (3.5-5.1)
[2016-07-21 07:20] LABS: CREATININE 0.83 mg/dl (0.44-1.00)
[2016-07-21 07:21] LABS: CALCIUM 9.6 mg/dl (8.4-10.2)
[2016-07-21 07:22] LABS: MAGNESIUM 2.1 mg/dl (1.7-2.5)
[2016-07-21 07:23] LABS: CONDITION 1; LH ANALYZER COMMENTS 1
[2016-07-21] MEDS: ALBUTEROL/IPRATROPIUM (NEB) 3 ML AMP HHN SCH ×2 (08:00→14:14)
[2016-07-21] MEDS: NICOTINE (14 MG/24 HR) PATCH TRANSDERM SCH (09:44)
[2016-07-21] MEDS: METHYLPREDNISOLONE 40 MG INJ IV SCH (09:45)
[2016-07-21] MEDS: GABAPENTIN 300 MG CAP PO SCH (09:46)
[2016-07-21] MEDS: ASPIRIN 81 MG TAB PO SCH (09:47)
[2016-07-21] MEDS: LOSARTAN 50 MG TAB PO SCH (09:47)
[2016-07-21] MEDS: METOPROLOL 50 MG TAB PO SCH (09:47)
[2016-07-21] MEDS: SERTRALINE 100 MG TAB PO SCH (09:48)
[2016-07-21] MEDS: INSULIN ASPART [NOVOLOG] 3 ML PEN SC SCH ×4 (09:51→14:52)
[2016-07-21] MEDS: AMLODIPINE 10 MG TAB PO SCH (09:58)
--- NOTE | 2016-07-21 13:05 | PDOCDIS ---
Discharge Instructions DIAGNOSIS Discharge Diagnosis: COPD exacerbation. CHF exacerbation. CONDITION Patient Condition: Stable HOME CARE INSTRUCTIONS: Special Diet: CARDIAC, CARB CONTROLLED. FOLLOW UP/APPOINTMENTS Appointments Issac Grimes MD Specialty: Internal Medicine Office Address: [address] [place], [place] [id number] Office OTHER ORDERS: Other Orders: 1. Take medications as per prescription. 2. Carbohydrate controlled, low-cholesterol diet. 3. Avoid using nicotine. 4. Resume activities as tolerated. 5. Use oxygen [id number]. 6. Follow-up with your primary care physician in 2 weeks. If you do not have a primary care physician, please call Dr. Issac Grimes's office for appointment. 7. Please call 911 or go to the nearest emergency room if you have significant shortness of breath, chest pain, palpitations, or any other unusual signs/ symptoms. MARGARITO ALBARRAN NP Jul 21, 2016 13:04
[2016-07-21] MEDS ORDERED: LANT3I SC (13:08)
[2016-07-21] MEDS ORDERED: METO-429 PO (13:08)
[2016-07-21] MEDS ORDERED: NOVO3I SC (13:08)
[2016-07-21] MEDS ORDERED: PRED50TA PO (13:08)
[2016-07-21] MEDS ORDERED: FURO40TA PO (13:08)
[2016-07-21] MEDS ORDERED: IPRA4AER INHALATION (13:21)
[2016-07-21] MEDS ORDERED: HYDR-3498 PO (13:21)
[2016-07-21] MEDS ORDERED: TIOT18CA INHALATION (13:21)
--- NOTE | 2016-07-21 18:10 | CONS ---
Date/Time of Note Date/Time of Note DATE: 07/21/16 TIME: 18:07 Assessment/Plan Assessment/Plan Chief Complaint/Hosp Course Imp: 1. AVR 2.HTN 3.CHF-diastolic acute on chronic 4. COPD excerbation 5. Tob 6.PPM 7. WEakness 8. Anemia 9. Coagulopathy Recc: -Tele -serial ecg's -Continue losartan/norvasc/BB -add hydralazine to improve BP control -Continue steroids/Bronchodilators -Continue lasix diuresis and follow-up volume status closely -Continue asa -Continue broad spectrum abx's Problems: Consultation Date/Type/Reason Admit Date/Time Jul 17, 2016 at 17:33 Initial Consult Date 07/19/2016 Type of Consultation: Cardiology Reason for Consultation CHF/AVR Referring Provider: PASCALE HERNANDEZ MD Exam/Review of Systems Vital Signs Vitals Vital Signs Date Time Temp Pulse Resp B/P Pulse Ox O2 Delivery O2 Flow Rate FiO2 07/21/16 16:10 97.9 64 18 146/63 99 07/21/16 14:15 Nasal Cannula 4.0 07/18/16 19:15 35 Intake and Output 07/20/16 07/20/16 07/21/16 15:00 23:00 07:00 Intake Total 2200 ml 1500 ml Balance 2200 ml 1500 ml Exam Review of Systems: CONSTITUTIONAL: No fevers, chills. PULMONARY: mild sob-improving CARDIOVASCULAR: No chest pain/palpitations GASTROINTESTINAL: No nausea/vomiting. GENITOURINARY: No hematuria/dysuria. MUSCULOSKELETAL: No myagias/arthalgias. PSYCHIATRIC: The patient denies depression. NEUROLOGIC: No weakness Constitutional: alert, oriented Psych: no complaints Head: normocephalic ENMT: mucosa pink and moist Neck: jvd (8-9 cm water), supple Respiratory: diminished breath sounds (@ bases/B) Cardiovascular: regular rate and rhythm Gastrointestinal: soft Musculoskeletal: muscle tone Extremities: edema Neurological: other Results Result Diagram: 07/21/16 0530 07/21/16 0530 Results 24 hrs Laboratory Tests Test 07/20/16 22:08 07/21/16 02:34 07/21/16 05:30 07/21/16 08:32 Bedside Glucose 239 H 320 H 238 H Anion Gap 19 H Basophils # 0.0 Basophils % 0.0 Blood Morphology Comment Blood Urea Nitrogen 27 H Calcium Level 9.6 Carbon Dioxide Level 31 Chloride Level 99 Creatinine 0.83 Eosinophils # 0.0 Eosinophils % 0.0 Glucose Level 287 H Hematocrit 37.8 Hemoglobin 12.1 INR International Normalized Ratio 3.03 Lymphocytes # 2.2 Lymphocytes % 31.6 Magnesium Level 2.1 Mean Corpuscular Hemoglobin 28.2 L Mean Corpuscular Hemoglobin Concent 32.0 Mean Corpuscular Volume 88.0 Mean Platelet Volume 10.0 Monocytes # 0.7 Monocytes % 10.4 Neutrophils # 4.1 Neutrophils % 58.0 Nucleated Red Blood Cells # 0.0 Nucleated Red Blood Cells % 0.0 Phosphorus Level 4.9 Platelet Count 180 Potassium Level 4.5 Prothrombin Time 31.8 H Prothrombin Time Ratio 2.5 Red Blood Count 4.29 Red Cell Distribution Width 23.7 H Sodium Level 144 White Blood Count 7.1 Test 07/21/16 12:57 Bedside Glucose 80 Medications Medications Current Medications Lorazepam (Ativan) 0.5 mg Q6H PRN IV ANXIETY; Start 07/17/16 at 18:30 Ondansetron HCl (Zofran Inj) 4 mg Q6H PRN IV NAUSEA AND/OR VOMITING Last administered on 07/17/16 20:24; Admin Dose 4 MG; Start 07/17/16 at 18:30 Aspirin (Aspirin) 81 mg DAILY PO Last administered on 07/21/16 09:47; Admin Dose 81 MG; Start 07/18/16 at 09:00 Nitroglycerin (Nitroglycerin (Sl Tab) 0.4 Mg) 1 tab Q5M PRN SL CHEST PAIN; Start 07/17/16 at 18:30 Acetaminophen (Tylenol Tab) 650 mg Q6H PRN PO PAIN LEVEL 1-3 OR FEVER Last administered on 07/20/16 19:11; Admin Dose 650 MG; Start 07/17/16 at 18:30 Acetaminophen/ Hydrocodone Bitart ([place] (5/325)) 1 tab Q6H PRN PO PAIN LEVEL 4 -6 Last administered on 07/19/16 20:57; Admin Dose 1 TAB; Start 07/17/16 at 18: 30 Morphine Sulfate (morphine) 2 mg Q4H PRN IV PAIN LEVEL 7-10 Last administered on 07/20/16 20:11; Admin Dose 2 MG; Start 07/17/16 at 18:30 Magnesium Hydroxide (Milk Of Mag) 30 ml DAILY PRN PO CONSTIPATION Last administered on 07/21/16 06:16; Admin Dose 30 ML; Start 07/17/16 at 18:30 Bisacodyl (Dulcolax) 5 mg DAILY PRN PO CONSTIPATION Last administered on 16:47; Admin Dose 5 MG; Start 07/17/16 at 18:30 Atorvastatin Calcium (Lipitor) 80 mg QHS PO Last administered on 07/20/16 20: 12; Admin Dose 80 MG; Start 07/17/16 at 21:00 Gabapentin (Neurontin) 600 mg BID PO Last administered on 07/21/16 09:46; Admin Dose 600 MG; Start 07/17/16 at 21:00 Haloperidol (Haldol) 4 mg QHS PO Last administered on 07/20/16 22:27; Admin Dose 4 MG; Start 07/17/16 at 21:00 Losartan Potassium (Cozaar) 100 mg DAILY PO Last administered on 07/21/16 09: 47; Admin Dose 100 MG; Start 07/18/16 at 09:00 Pantoprazole (Protonix Tab) 40 mg DAILY@06 PO Last administered on 07/21/16 06 :09; Admin Dose 40 MG; Start 07/18/16 at 06:00 Sertraline HCl (Zoloft) 200 mg QAM PO Last administered on 07/21/16 09:48; Admin Dose 200 MG; Start 07/18/16 at 09:00 Trazodone HCl (Desyrel) 200 mg QHS PO Last administered on 07/20/16 20:12; Admin Dose 200 MG; Start 07/17/16 at 21:00 Warfarin Sodium (Coumadin) 5 mg DAILY@17 PO Last administered on 07/20/16 16: 47; Admin Dose 5 MG; Start 07/17/16 at 19:00 Miscellaneous Information 1 ea NOTE XX ; Start 07/17/16 at 19:00 Glucose (Glutose) 15 gm Q15M PRN PO DECREASED GLUCOSE; Start 07/17/16 at 19:00 Glucose (Glutose) 22.5 gm Q15M PRN PO DECREASED GLUCOSE; Start 07/17/16 at 19:00 Dextrose (D50w Syringe) 25 ml Q15M PRN IV DECREASED GLUCOSE; Start 07/17/16 at 19:00 Dextrose (D50w Syringe) 50 ml Q15M PRN IV DECREASED GLUCOSE; Start 07/17/16 at 19:00 Glucagon (Glucagen) 1 mg Q15M PRN IM DECREASED GLUCOSE; Start 07/17/16 at 19:00 Glucose (Glutose) 15 gm Q15M PRN BUCCAL DECREASED GLUCOSE; Start 07/17/16 at 19: 00 Hydralazine HCl (Apresoline) 10 mg Q6H PRN IV SBP>160 Last administered on 07/19 21:43; Admin Dose 10 MG; Start 07/17/16 at 19:00 Nicotine 1 patch 1 patch DAILY TRANSDERM Last administered on 07/21/16 09:44; Admin Dose 1 PATCH; Start 07/17/16 at 20:00 Ceftriaxone Sodium 50 ml @ 100 mls/hr Q24H IVPB Last administered on 13:42; Admin Dose 100 MLS/HR; Start 07/18/16 at 14:00 Azithromycin (Zithromax 500mg/ NS (Pmx)) 250 ml @ 250 mls/hr Q24H IVPB Last administered on 07/20/16 15:06; Admin Dose 250 MLS/HR; Start 07/18/16 at 15:00 Methylprednisolone Sodium Succinate (Solu-Medrol) 40 mg Q12 IV Last administered on 07/21/16 09:45; Admin Dose 40 MG; Start 07/19/16 at 21:00 Amlodipine Besylate (Norvasc) 10 mg DAILY PO Last administered on 07/21/16 09: 58; Admin Dose 10 MG; Start 07/20/16 at 09:00 Insulin Glargine (Lantus) 54 unit HS SC Last administered on 07/20/16 23:12; Admin Dose 54 UNIT; Start 07/20/16 at 21:00 Metoprolol Tartrate (Lopressor) 50 mg BID PO Last administered on 07/21/16 09: 47; Admin Dose 50 MG; Start 07/20/16 at 21:00 CHLOE FISHMAN Jul 21, 2016 18:10
--- NOTE | 2016-07-21 18:55 | DS ---
DATE OF ADMISSION: 07/17/2016 DATE OF DISCHARGE: 07/21/2016 FINAL DIAGNOSES: 1. Acute on chronic hypoxic respiratory failure secondary to chronic obstructive pulmonary disease and congestive heart failure exacerbation. 2. Congestive heart failure exacerbation, acute on chronic, diastolic dysfunction. 3. Chronic obstructive pulmonary disease exacerbation. 4. Essential hypertension. 5. Type 2 diabetes mellitus. 6. Status post aortic valve replacement. 7. Nicotine use. 8. Pulmonary hypertension. 9. Depression. 10. Obesity. CONSULTATIONS: Dr. Naun Bernard, cardiology. HOSPITAL COURSE: This is a 61-year-old -[place] female with chronic hypoxia secondary to chronic obstructive pulmonary disease who uses home oxygen , essential hypertension, diastolic heart failure, type 2 diabetes mellitus, anemia, status post aortic valve replacement, and nicotine use who was brought to the emergency room by ambulance from an urgent care for further evaluation of shortness of breath that has been going on for a three-day period. The patient verbalized that she has been using her inhaled bronchodilators more frequently with no improvement in shortness of breath. She has been using oxygen at home with no improvement in shortness of breath. She denied any cough. She was complaining of subjective fevers and chills. She was complaining of nonspecific chest pain. In the emergency room, the patient was noticed to have an oxygen saturation of 74%. The patient was subsequently put on 100% nonrebreather mask with improvement in the oxygen saturation. The patient underwent a chest x-ray that showed pulmonary edema and cardiomegaly. The patient was treated with IV Solu-Medrol and IV Lasix along with inhaled bronchodilators in the emergency room. Provided the patient's history of present illness, her comorbidities, and the diagnostic findings, a clinical decision was made to admit the patient to inpatient setting to have her further evaluated. The patient was admitted to inpatient telemetry floor. Cardiology consult was called. Serial troponins were ordered. The patient was started on aggressive diuresis. The patient's ABG showed evidence of hypoxia and no evidence of any CO2 retention. The patient's acute on chronic respiratory failure could have been most probably secondary to underlying chronic obstructive pulmonary disease exacerbation, and congestive heart failure exacerbation. The patient was maintained on aggressive diuresis with improvement in the patient's symptoms. She was also maintained on tapering dose of IV steroids. She was maintained on inhaled bronchodilators around the clock and on a p.r.n. basis for any episodes of dyspnea. The patient has underlying essential hypertension. The patient was maintained on antihypertensives. The patient's antihypertensives were adjusted to obtain optimal blood pressure control. The patient has history of type 2 diabetes mellitus. Hemoglobin A1c was found to be 5.8. The patient's insulin dosing had to be adjusted multiple times to obtain optimal blood sugar control since the patient had hyperglycemia secondary to underlying steroid use. The patient is status post aortic valve replacement by TAVR. The patient was maintained on warfarin with therapeutic INR. The patient is a current nicotine user. The patient was advised on stopping the use of nicotine. The patient was provided with nicotine patch. The patient also has pulmonary hypertension. PA pressure 43 on 2D echocardiogram done on 02/29/2016. The patient was maintained on supplemental oxygen, and the patient was provided with calcium channel blockers. The patient also has history of depression. The patient was maintained on antidepressants for the same. The patient's symptomatology improved gradually with the treatment strategy, and the patient is stable to be discharged home today. The patient was cleared by consultants to be discharged home. DISCHARGE DISPOSITION AND PLAN: The patient will be discharged home today. The patient was instructed to take medications as per prescription. She was instructed to follow a carbohydrate controlled, low cholesterol diet. The patient was instructed to avoid the use of nicotine. The patient was instructed to resume activities as tolerated. The patient was instructed to use oxygen around the clock. The patient already has home oxygen. The patient was instructed to follow up with her primary care physician in 2 weeks. She was instructed to call Dr. Issac Grimes's office if she does not have a primary care physician. The patient was instructed to call 911 or go to the nearest emergency room if she has significant shortness of breath, chest pain, palpitations, or any other unusual signs or symptoms. The patient verbalized understanding of her discharge instructions. CONDITION AT DISCHARGE: Stable. DISCHARGE MEDICATIONS: 1. Combivent/Respimat 20/100 mcg per inhalation, 1 puff inhaled q.i.d. p.r.n. shortness of breath. 2. Lasix 40 mg p.o. b.i.d. 3. [place] 5/325 one tablet p.o. q. 6 hours p.r.n. pain. 4. NovoLog insulin 18 units subcutaneously with meals. 5. Lantus insulin 54 units subcutaneously at bedtime. 6. Lopressor 50 mg p.o. b.i.d. 7. Prednisone 40 mg p.o. daily for 2 days, followed by prednisone 20 mg p.o. daily x2 days, followed by prednisone 10 mg p.o. daily x2 days, followed by prednisone 5 mg p.o. daily x2 days. 8. Spiriva 18 mcg capsule, 1 capsule inhalation daily. 9. Amlodipine 5 mg p.o. daily. 10. Aspirin 81 mg p.o. daily. 11. Atorvastatin 80 mg p.o. at bedtime. 12. Fenofibrate 67 mg p.o. daily. 13. Gabapentin 600 mg p.o. b.i.d. 14. Haloperidol 4 mg p.o. at bedtime. 15. Losartan 100 mg p.o. daily. 16. [place]-3 fatty acids 1 capsule p.o. b.i.d. 17. Protonix 40 mg p.o. daily. 18. Potassium chloride 8 mEq p.o. daily. 19. Sertraline 200 mg p.o. q. a.m. 20. Trazodone 200 mg p.o. at bedtime. 21. Warfarin 5 mg p.o. Sunday, Sunday, Sunday, , Sunday, and Sunday. 22. Warfarin 7.5 mg p.o. Sunday. PERTINENT LABORATORY AND DIAGNOSTIC DATA: 1. Hemoglobin A1c 5.8. 2. Fasting lipid panel: Triglycerides 85, total cholesterol 97, LDL 49, AST 31. 3. Latest CBC: WBC 7.1, hemoglobin 12.1, hematocrit 37.8, platelet count of 180. 4. Latest BMP: Sodium 142, potassium 4.6, chloride of 102, carbon dioxide 29, anion gap 16, BUN 24, creatinine 0.91, glucose 183, calcium 9.0, phosphorus 4.0 , magnesium 2.0. 5. Urine drug screen positive for cannabinoids. 6. Blood gas that was done on low flow O2 shows pH 7.410, pCO2 40.2, pO2 62.5, bicarbonate 24.9, oxygen saturation 90.9. 7. Latest chest x-ray on 07/20/2006 showed improved pulmonary edema. At this time, I would like to thank Dr. Bernard for seeing the patient and providing clinical recommendations. The case and management of this patient was fully discussed with Dr. Arteaga. Approximately 40 minutes was spent on coordinating the discharge on this patient. MARGARITO ARTEAGA MD, AM/NICOLÁS Conf#: [id number] DID#: [id number] MTDD
== END 2016-07-21 19:01 | disposition home or self-care (01) | DRG 291 ==
LOC: E/R 16:04 → MS4 17:33
PROVIDERS: ADMIT Family Medicine; ATTEND Family Medicine
DX: I11.0 Hypertensive heart disease with heart failure (principal); J96.20 Acute and chronic respiratory failure, unspecified whether with hypoxia or hypercapnia; I27.2 Other secondary pulmonary hypertension; J44.1 Chronic obstructive pulmonary disease with (acute) exacerbation; I50.33 Acute on chronic diastolic (congestive) heart failure; F17.200 Nicotine dependence, unspecified, uncomplicated; E11.9 Type 2 diabetes mellitus without complications; Z95.2 Presence of prosthetic heart valve; Z79.01 Long term (current) use of anticoagulants; F32.9 Major depressive disorder, single episode, unspecified; R09.02 Hypoxemia
CPT/HCPCS: 36600; 71010; 80048; 80061; 80307; 81003; 82550; 82553; 82803; 82962; 83036; 83735; 83880; 84100; 84439; 84443; 84484; 85025; 85610; 85730; 87086; 87400; 93005; 94640; 94664; 96372; 96374; 96375; 96376; J0360; J0456; J1815; J1940; J2270; J2405; J2920; J2930

== ENCOUNTER 2018-06-08 15:03 | Emergency (ER) | END 2018-06-08 22:01 | disposition home or self-care (01) ==

== ENCOUNTER 2019-01-09 13:32 | Emergency (ER) | payer OTHER ==
[~2019-01-09] VITALS: Ht 157.5 cm; Wt 100.0 kg
[~2019-01-09 13:32] MED LIST changes: -ALPR0.254 PO; +APIX5TAB PO; +ASPI-817 PO; +ATOR-2 PO; -ATOR80TA75 PO; +BUME1TAB PO; -CALC-143 PO; +CETI10TA19 PO; -COMP1EAC MC; -FURO20TA3 PO; -HAL2 PO; -HYDR-906 PO; -INSU100C SQ; +INSU100V3 IJ; -IPRA3AMP HHN; -LANT3I SC; +LOSA100T15 PO; -LOSA100T7 PO; -METF-388 PO; +METO-429 PO; -METO-448 PO; +MOME13HF2 INHALATION; -NAPR-685 PO; -Nicotine (14 Mg/24 Hr) TRANSDERM; +OMEP20CA16 PO; +OSCAL PO; -PANT40TA3 PO; -POTA8CAP PO; +TRA100 PO; -TRAZ300T15 PO; +TRIA15CR55 TOP; -[UNRECOGNIZED DRUG - CODE] PO; -[UNRECOGNIZED DRUG - CODE] PO
[2019-01-09 13:37] VITALS: Ht 157.5 cm; Wt 100.0 kg
--- NOTE | 2019-01-09 13:55 | ERD ---
ER Documentation Chief Complaint Chief Complaint generalized rash and itching, júnior leg discoloration.swellin with blistering HPI 63-year-old female history of diabetes, hypertension, CHF, O2 dependent COPD, pulmonary hypertension, depression, obesity and TAVR on Eliquis presents the ED complaining of a 2 to 3-day history of worsening bilateral lower extremity swelling and pruritus. Similar symptoms previously and was treated at wound care clinic with good resolution but symptoms are again worsening. No relieving or exacerbating factors. Denies chest pain, palpitations or shortness of breath. No abdominal pain, nausea or vomiting. No URI symptoms, cough or hemoptysis. No fevers or chills. ROS All systems reviewed and are negative except as per history of present illness. Medications Home Meds Reported Medications Calcium/Vitamin D (Oyster Shell W/Vit D) 1 Tab Tab, 1 TAB PO DAILY, TAB 06/08/18 Trazodone Hcl* (Trazodone Hcl*) 100 Mg Tablet, 300 MG PO QHS, #30 TAB 06/08/18 Triamcinolone Acetonide* (Kenalog*) 0.1%-15GM Cr, 1 APPLIC TOP BID, #1 TUB 06/08/18 Omeprazole* (Omeprazole*) Unknown Strength Capsule.dr, 1 TAB PO DAILY, #30 CAP 06/08/18 Metoprolol Tartrate* (Lopressor*) 50 Mg Tab, 50 MG PO BID, #60 TAB 18 Gabapentin* (Gabapentin*) 600 Mg Tablet, 600 MG PO BID, #60 TAB 06/08/18 Apixaban* (Eliquis*) 5 Mg Tablet, 5 MG PO BID, TAB 06/08/18 Bumetanide* (Bumetanide*) 1 Mg Tablet, 1 MG PO BID, TAB 06/08/18 Mometasone-Formoterol (Dulera) 100-5 Mcg - 13 Gm Hfa.aer.ad, 2 PUFFS INHALATION BID, #1 INHALER 06/08/18 Atorvastatin* (Atorvastatin*) 80 Mg Tablet, 80 MG PO QHS, #30 TAB 06/08/18 Aspirin* (Aspirin* EC) 81 Mg Tablet.dr, 81 MG PO DAILY, TAB 06/08/18 Losartan Potassium* (Losartan Potassium*) 100 Mg Tablet, 100 MG PO DAILY, TAB 06/08/18 Sertraline Hcl* (Zoloft*) 100 Mg Tablet, 200 MG PO DAILY, #60 TAB 06/08/18 Cetirizine Hcl* (Cetirizine Hcl*) 10 Mg Tablet, 10 MG PO DAILY, #30 TAB 06/08/18 Fenofibrate, Micronized (Fenofibrate) 67 Mg Capsule, 67 MG PO DAILY, CAP 06/08/18 Amlodipine Besylate* (Norvasc*) 5 Mg Tablet, 5 MG PO DAILY, TAB 06/08/18 Insulin Regular, Human (Humulin R) 100 Unit/1 Ml Vial, 25 UNIT IJ BID, VIAL 06/08/18 Allergies Allergies: Coded Allergies: No Known Allergy (Unverified , 06/08/18) PMhx/Soc History of Surgery: Yes (Appendectiomy, tonsillectomy, pacemaker 09/21, aortic valve replacement 09/21) Anesthesia Reaction: No Hx Neurological Disorder: Yes (chronic back pain, left leg pain) Hx Respiratory Disorders: Yes (Asthma, COPD, 02 at home (4L), bronchitis ) Hx Cardiac Disorders: Yes (HTN, valve replacement, pacemaker, CHF (dx 2016)) Hx Psychiatric Problems: Yes (Depression (takes zoloft, abilify, trazadone, and haldol)) Hx Miscellaneous Medical Probl: No Hx Alcohol Use: Yes (Socially) Hx Substance Use: No Hx Tobacco Use: Yes (Half pack per day) Smoking Status: Current some day smoker FmHx No family history relevant to presenting complaint Physical Exam Vitals Vital Signs Date Temp Pulse Resp B/P (MAP) Pulse Ox O2 O2 Flow FiO2 Time Delivery Rate 01/09/19 98.1 70 18 137/64 98 13:37 (88) Physical Exam Const: Mild distress Head: Atraumatic Eyes: Normal Conjunctiva ENT: Normal External Ears, Nose and Mouth. Neck: Full range of motion. No JVD. Resp: Breath sounds are diminished at the bases but clear to auscultation bilaterally Cardio: Regular rate and rhythm, no murmurs Abd: Soft, non tender, non distended. Normal bowel sounds Skin: No petechiae or rashes Back: No midline or flank tenderness Ext: Bilateral lower extremity swelling below the knee to above the ankle. Venous stasis changes. No erythema, induration or subcutaneous crepitus. Pulses 2+ in all extremities. Neur: Awake and alert Psych: Normal Mood and Affect Result Diagram: 01/09/19 1419 01/09/19 1418 Results 24 hrs Laboratory Tests Test 01/09/19 14:18 01/09/19 14:19 Sodium Level 144 mmol/L Potassium Level 4.8 mmol/L Chloride Level 108 mmol/L Carbon Dioxide Level 27 mmol/L Anion Gap 9 Blood Urea Nitrogen 27 mg/dl Creatinine 1.53 mg/dl Est Glomerular Filtrat Rate mL/min 42 mL/min Glucose Level 99 mg/dl Calcium Level 9.2 mg/dl White Blood Count 7.8 10^3/ul Red Blood Count 4.37 10^6/ul Hemoglobin 12.0 g/dl Hematocrit 38.2 % Mean Corpuscular Volume 87.4 fl Mean Corpuscular Hemoglobin 27.5 pg Mean Corpuscular Hemoglobin Concent 31.4 g/dl Red Cell Distribution Width 14.8 % Platelet Count 222 10^3/UL Mean Platelet Volume 9.3 fl Immature Granulocytes % 0.300 % Neutrophils % 73.8 % Lymphocytes % 16.9 % Monocytes % 6.0 % Eosinophils % 2.6 % Basophils % 0.4 % Nucleated Red Blood Cells % 0.0 /100WBC Immature Granulocytes # 0.020 10^3/ul Neutrophils # 5.8 10^3/ul Lymphocytes # 1.3 10^3/ul Monocytes # 0.5 10^3/ul Eosinophils # 0.2 10^3/ul Basophils # 0.0 10^3/ul Nucleated Red Blood Cells # 0.0 10^3/ul Current Medications Medications Dose Sig/River Start Time Status Last (Trade) Ordered Route PRN Stop Time Admin Dose Reason Admin Hydroxyzine 50 mg ONCE ONCE 01/09/19 DC HCl IM 14:00 01/09/19 (Vistaril 14:03 Inj) Procedures/MDM DOCUMENTS REVIEWED: ED nurse, prior records IMAGING: PROCEDURE: XR Chest. TECHNIQUE: Single frontal radiograph. CLINICAL INDICATION: CHF COMPARISON: DR CHEST 06/08/2018; HANH CHEST 07/20/2016; CR CHEST 07/19/2016; CR CHEST 07/17/2016 FINDINGS: Mildly low lung volumes with elevation of the right hemidiaphragm. There is chronic vascular engorgement with prominence of the central and peripheral interstitial lung markings, as compared to 06/08/2018. No evidence of focal cons olidation, pneumothorax, or pleural effusion. Cardiac silhouette remains enlarged. No interval change in left-sided dual chamber lead pacer. The patient is also status post aortic stent overlying the central cardiac silhouette. Coarse atherosclerotic calcification of the aortic arch present. Bones are osteopenic. No acute osseous abnormality identified within the visualized thorax. Overlying soft tissues are equally unremarkable. IMPRESSION: Chronic vascular engorgement with prominence of the central and peripheral interstitial lung markings, similar to 06/08/2018. Superimposed mild or early interstitial edema or airway inflammation may be difficult to exclude. Cardiomegaly. Status post dual lead pacer unchanged in position and configuration. Aortic stent. RPTAT: EE Physician Aleksey Date Time Electronically viewed and signed by Physician Aleksey on 01/09/2019 14:31 BP/ PROCEDURE: Ultrasound of the bilateral lower extremity venous system. CLINICAL INDICATION: Discoloration TECHNIQUE: Marroquin scale with and without compression, color doppler, spectral doppler of the venous system of the bilateral lower extremities was performed. Venous augmentation maneuvers were utilized. COMPARISON: No prior studies are available for comparison. FINDINGS: RIGHT: Common femoral vein: Patent and compressible. Femoral vein: Patent and compressible. Popliteal vein: Patent and compressible. Visualized calf veins: Patent and compressible. Soft tissues: Overlying soft tissues of the right calf are mildly edematous. LEFT: Common femoral vein: Patent and compressible. Femoral vein: Patent and compressible. Popliteal vein: Patent and compressible. Visualized calf veins: Patent and compressible. Soft tissues: Normal IMPRESSION: 1. No evidence of deep vein thrombosis in both lower extremities. 2. Mild soft tissue edema of the right calf. RPTAT: PP Physician Aleksey Date Time Electronically viewed and signed by Physician Aleksey on 01/09/2019 14:35 BP/ MEDICAL DECISION MAKIN-year-old female history of diabetes, hypertension, CHF, O2 dependent COPD, pulmonary hypertension, depression, obesity and TAVR on Eliquis presents the ED complaining of a 2 to 3-day history of worsening bilateral lower extremity swelling and pruritus. CBC is negative for leukocyto sis or anemia. Chemistry reveals chronic kidney disease but no electrolyte abnormalities or hyperglycemia. Venous Dopplers of lower extremity negative for DVT. Chest x-ray unchanged from prior without evidence of acute volume overload or pulmonary edema. Patient presents with worsening lower extremity swelling and venous stasis changes but no evidence of DVT, cellulitis or necrotizing fasciitis. Local wound care provided. Pruritus treated with Atarax. Stable for discharge with precautionary instructions and outpatient follow-up as counseled. Counseled patient regarding diagnostic workup, diagnosis and need for followup. Understands to return to ED if symptoms recur, worsen or any other concerns. Departure Diagnosis: Primary Impression: Swelling of both lower extremities Additional Impressions: Venous stasis of both lower extremities Anticoagulated Status post transcatheter aortic valve replacement Condition: Stable MO REYNOLDS MD Jan 09, 2019 13:55
[2019-01-09] MEDS ORDERED: hydrOXYzine HCL 100 MG INJ IM ONE (14:00)
[2019-01-09] MEDS ORDERED: HYDR-842 PO (14:55)
[2019-01-09 15:00] VITALS: BP 120/50; PULSE 71; RESP 20
[2019-01-09] MEDS ORDERED: hydrOXYzine PAMOATE 25 MG CAP PO SCH (15:00)
== END 2019-01-09 16:52 | disposition home or self-care (01) ==
LOC: E/R 13:32
DX: M79.89 Other specified soft tissue disorders (principal); I87.8 Other specified disorders of veins; I10 Essential (primary) hypertension; I50.9 Heart failure, unspecified; J44.9 Chronic obstructive pulmonary disease, unspecified; F17.210 Nicotine dependence, cigarettes, uncomplicated; E66.9 Obesity, unspecified; Z95.4 Presence of other heart-valve replacement; Z95.0 Presence of cardiac pacemaker; Z79.4 Long term (current) use of insulin; Z79.82 Long term (current) use of aspirin; Z68.41 Body mass index [BMI] 40.0-44.9, adult
CPT/HCPCS: 71045; 80048; 85025; 93970; J3410; Z7502; Z7610